=== PATIENT | female | born 1955 | race Caucasian/White ===

== ENCOUNTER 2018-10-31 11:02 | Outpatient (RCR) | payer OTHER, SELFPAY ==
--- NOTE | 2018-10-31 17:09 | PT.OIE ---
Current Diagnoses Pain in left arm (10/31/18) Past Medical History (Last Updated 10/29/18 @ 10:28 by Stefanie Cuellar) Chicken pox (Resolved) History of Green[place]ic measles (Resolved) History of flexible sigmoidoscopy (Resolved 1988) Left inguinal hernia (Resolved 1988) Mumps (Resolved) Pneumonia (Resolved) Rheumatic fever (Resolved) Scarlet fever (Resolved) Urticarial rash (Resolved) Vasovagal syncope (Resolved) Past Surgical History (Last Updated 10/29/18 @ 10:28 by Stefanie Cuellar) Status post colonoscopy (Resolved 2004) Status post colonoscopy (Resolved 2013) Status post dilation and curettage (Resolved 1987) Status post hernia repair (Resolved 1988) Status post tonsillectomy and adenoidectomy (Resolved ~1959) Provider Visit Care Team Role Provider Type Sridevi Joy DO Primary Care Provider Physician Specialty: Family Practice Address: [address] [place] [address] Email: [email or web address] CRISTIAN Barrios Attending Provider Advanced Electrical Systems Design Engineer Specialty: Medical Address: [address] [place] [address] Email: Physical Therapy Initial Evaluation PT-OP-A Visit Information Start: 10/31/18 16:45 Freq: Status: Active Protocol: Document 10/31/18 11:15 DCW (Rec: 10/31/18 17:08 [facility] [id number]) Out-Patient Physical Therapy Visit Information Visit Information Visit Type Initial Evaluation Visit Start Time 11:15 Visit Stop Time 11:55 Total Visit Minutes 40 Visit Number 1 Number of MILLER HEAD Visits 0 Evaluation Information Evaluation Date 10/31/18 PT-OP-B Current Condition Start: 10/31/18 16:45 Freq: Status: Active Protocol: Document 10/31/18 11:15 DCW (Rec: 10/31/18 17:08 DC [id number]) Current Condition History of Current Condition Onset Date 2 months Current Complaints point-specific pain along proximal forearm History of Current Condition Pt is a 63 year old female presenting with a two month history of severe, 9/10 pain on her left forearm. Pain only occurs with pressure, such as leaning forward onto her forearms at her kitchen counter. At all other time, she reports no pain or difficulty. When pain occurs, it lasts for a few minutes to 30 minutes, but fades and she has no lasting effects. Pt reports she doesn't know what caused the injury, but does admit that prior to her pain beginning, she was hanging lights on her roof, and the ladder slipped out from under her. She was able to grab ahold of the gutter, but she doesn't know if the sudden pull led to an injury, or this was caused by something else. Treatment Goals Patient/Caregiver Goals Decreased pain Prior Functional Status Baseline Function- ADL's Independent Baseline Function- Mobility Independent PT-OP-C Subjective Start: 10/31/18 16:45 Freq: Status: Active Protocol: Document 10/31/18 11:15 DCW (Rec: 10/31/18 17:08 DCW [id number]) OP-PT Subjective Patient Comments Patient Comments I feel like I'm crazy, but I just don't know where the pain is coming from. Patient Questionnaires Quick Dash- Upper Extremity Quick Dash UE Score 13.64% Quick Dash UE Impairment 1 to 19% Impaired (Score 1-19) OP-PT Pain Assessment Pain Assessment Grid Paper Pain Assessment Grid Completed Yes Location Left Proximal Forearm Intensity 9 Scale Used Numeric (1 - 10) Description Sharp Frequency Occasional Other Pain Aggravating Factors Resting on forearms PT-OP-F Manual Assessment Start: 10/31/18 16:45 Freq: Status: Active Protocol: Document 10/31/18 11:15 DCW (Rec: 10/31/18 17:08 DCW [id number]) Manual Assessments Soft Tissue Assessment Soft Tissue Mobility Assessment No notable soft tissue injury, tone, or tenderness to palpation Joint Mobility Assessment Joint Mobility Assessment Mobility of humeroulnar joint and radioulnar joint WNL and no pain Other Manual Assessments Other Manual Assessments Only area that caused reaction to palpation was directly on ulna approximately four cm from olecranon PT-OP-K Range of Motion Start: 10/31/18 16:45 Freq: Status: Active Protocol: Document 10/31/18 11:15 DCW (Rec: 10/31/18 17:08 DCW [id number]) Shoulder Goniometric Range of Motion Shoulder Measured in Degrees Left Active Shoulder ROM WFL Yes Elbow/Forearm Range of Motion Elbow/Forearm Measured in Degrees Left Active Elbow/Forearm ROM WFL Yes Wrist Goniometric Range of Motion Wrist Measured in Degrees Left Wrist ROM WFL Yes PT-OP-L Special Tests Start: 10/31/18 16:45 Freq: Status: Active Protocol: Document 10/31/18 11:15 DCW (Rec: 10/31/18 17:08 DCW [id number]) Special Tests Elbow Special Tests Speed's Biceps Test Results Negative Medial Epicondylitis Test Results Negative Varus- 0 Degrees Test Results Negative Valgus- 0 Degrees Test Results Negative Lateral Epicondylitis Flexed Test Results Negative Lateral Epicondylitis Extended Test Results Negative PT-OP-M Strength Start: 10/31/18 16:45 Freq: Status: Active Protocol: Document 10/31/18 11:15 DCW (Rec: 10/31/18 17:08 DCW [id number]) Elbow/Forearm Strength Elbow and Forearm Manual Muscle Testing Left Flexion (C6) 5 Normal Extension (C7) 5 Normal Pronation 5 Normal Supination 5 Normal Wrist Strength Wrist Manual Muscle Testing Left Flexion (C7) 5 Normal Extension (C6) 5 Normal Ulnar Deviation 5 Normal Radial Deviation 5 Normal Hand Operations Manager/Coordinator/Pinch Strength Hand Dominance Hand Dominance Right Hand Strength Right Operations Manager/Coordinator (lbs) 70 Comments 3-trial average (75, 70, 65) Left Operations Manager/Coordinator (lbs) 70 Comments 3-trial average (70, 70, 70) PT-OP-T Assessment and Plan Start: 10/31/18 16:45 Freq: Status: Active Protocol: Document 10/31/18 11:15 DCW (Rec: 10/31/18 17:08 DCW [id number]) Physical Therapy Assessment Rehab Potential Rehabilitation Potential Poor Evaluation Complexity Number of Body Systems Impaired 1-2 Clinical Presentation at Evaluation Stable Impairments Impairments Pain Goals One Impairment Pain up to 9/10 when leaning onto forearms Short Term Goal (STG) Pt to report pain of at most 5 /10 when leaning onto forearms or with palpation STG Duration 12/01/18 Assessment Summary Assessment Pt presents with no symptoms other than point specific pain directly on her proximal ulna . No indication of soft tissue injury, and no deficits in ROM, Strength, activity participation, or ADLs. Currently, pt does not display any indication that she would benefit from skilled therapy. Recommend pt return to PCP for potential proximal ulna radiographs and further DDx. If further testing does uncover functional limitations or soft tissue injury, pt may then be appropriate for skilled therapy at that time, so pt's chart will not be discharged at this time until further testing can be performed. Physical Therapy Plan Frequency and Duration Frequency of Treatment Occasional Duration of Treatment Two months Plan of Care Start Date 10/31/18 Plan of Care End Date 01/01/19 Therapeutic Interventions Therapeutic Interventions Home Exercise Program Manual Therapy Next Visit Focus/Plan Next Note Type Treatment Note Next Visit Plan Further assessment as needed.
--- NOTE | 2018-10-31 17:09 | PT.OPPOC ---
Current Diagnoses Pain in left arm (10/31/18) Provider Visit Care Team Role Provider Type Sridevi Joy DO Primary Care Provider Physician Specialty: Family Practice Address: [address] [place] [address], [id number] Email: [email or web address] CRISTIAN Barrios Attending Provider Advanced Bulb Planter Specialty: Medical Address: [address] [place] [address], [id number] Email: Plan Of Care PT-OP-T Assessment and Plan Start: 10/31/18 16:45 Freq: Status: Active Protocol: Document 10/31/18 11:15 DCW (Rec: 10/31/18 17:08 DCW [id number]) Physical Therapy Assessment Rehab Potential Rehabilitation Potential Poor Evaluation Complexity Number of Body Systems Impaired 1-2 Clinical Presentation at Evaluation Stable Impairments Impairments Pain Goals One Impairment Pain up to 9/10 when leaning onto forearms Short Term Goal (STG) Pt to report pain of at most 5 /10 when leaning onto forearms or with palpation STG Duration 12/01/18 Assessment Summary Assessment Pt presents with no symptoms other than point specific pain directly on her proximal ulna . No indication of soft tissue injury, and no deficits in ROM, Strength, activity participation, or ADLs. Currently, pt does not display any indication that she would benefit from skilled therapy. Recommend pt return to PCP for potential proximal ulna radiographs and further DDx. If further testing does uncover functional limitations or soft tissue injury, pt may then be appropriate for skilled therapy at that time, so pt's chart will not be discharged at this time until further testing can be performed. Physical Therapy Plan Frequency and Duration Frequency of Treatment Occasional Duration of Treatment Two months Plan of Care Start Date 10/31/18 Plan of Care End Date 01/01/19 Therapeutic Interventions Therapeutic Interventions Home Exercise Program Manual Therapy Next Visit Focus/Plan Next Note Type Treatment Note Next Visit Plan Further assessment as needed. Plan of Care Dates Plan of Care Start Date 10/31/18 Plan of Care End Date 01/01/19 Please Sign and Return: I have reviewed this Plan of Care and certify that the skilled therapy services above are required to meet the patient?s needs. Physician Signature Date Printed Name and Credentials Clinical Instructor Signature Printed Name and Credentials
--- NOTE | 2019-01-13 11:21 | PT.OPDS ---
Current Diagnoses Pain in left arm (10/31/18) Provider Visit Care Team Role Provider Type Sridevi Joy DO Primary Care Provider Physician Specialty: Family Practice Address: [address] [place] [address], [id number] Email: [email or web address] CRISTIAN Barrios Attending Provider Advanced Merchandise Buyer Specialty: Medical Address: [address] [place] [address], [id number] Email: Visit Number Visit Number 1 Discharge Summary PT-OP-B Current Condition Start: 10/31/18 16:45 Freq: Status: Active Protocol: Document 10/31/18 11:15 DCW (Rec: 10/31/18 17:08 DCW [id number]) Current Condition History of Current Condition Onset Date 2 months Current Complaints point-specific pain along proximal forearm History of Current Condition Pt is a 63 year old female presenting with a two month history of severe, 9/10 pain on her left forearm. Pain only occurs with pressure, such as leaning forward onto her forearms at her kitchen counter. At all other time, she reports no pain or difficulty. When pain occurs, it lasts for a few minutes to 30 minutes, but fades and she has no lasting effects. Pt reports she doesn't know what caused the injury, but does admit that prior to her pain beginning, she was hanging lights on her roof, and the ladder slipped out from under her. She was able to grab ahold of the gutter, but she doesn't know if the sudden pull led to an injury, or this was caused by something else. Treatment Goals Patient/Caregiver Goals Decreased pain Prior Functional Status Baseline Function- ADL's Independent Baseline Function- Mobility Independent PT-OP-C Subjective Start: 10/31/18 16:45 Freq: Status: Active Protocol: Document 10/31/18 11:15 DCW (Rec: 10/31/18 17:08 DCW [id number]) OP-PT Subjective Patient Comments Patient Comments I feel like I'm crazy, but I just don't know where the pain is coming from. Patient Questionnaires Quick Dash- Upper Extremity Quick Dash UE Score 13.64% Quick Dash UE Impairment 1 to 19% Impaired (Score 1-19) OP-PT Pain Assessment Pain Assessment Grid Paper Pain Assessment Grid Completed Yes Location Left Proximal Forearm Intensity 9 Scale Used Numeric (1 - 10) Description Sharp Frequency Occasional Other Pain Aggravating Factors Resting on forearms PT-OP-F Manual Assessment Start: 10/31/18 16:45 Freq: Status: Active Protocol: Document 10/31/18 11:15 DCW (Rec: 10/31/18 17:08 DCW [id number]) Manual Assessments Soft Tissue Assessment Soft Tissue Mobility Assessment No notable soft tissue injury, tone, or tenderness to palpation Joint Mobility Assessment Joint Mobility Assessment Mobility of humeroulnar joint and radioulnar joint WNL and no pain Other Manual Assessments Other Manual Assessments Only area that caused reaction to palpation was directly on ulna approximately four cm from olecranon PT-OP-K Range of Motion Start: 10/31/18 16:45 Freq: Status: Active Protocol: Document 10/31/18 11:15 DCW (Rec: 10/31/18 17:08 DCW [id number]) Shoulder Goniometric Range of Motion Shoulder Measured in Degrees Left Active Shoulder ROM WFL Yes Elbow/Forearm Range of Motion Elbow/Forearm Measured in Degrees Left Active Elbow/Forearm ROM WFL Yes Wrist Goniometric Range of Motion Wrist Measured in Degrees Left Wrist ROM WFL Yes PT-OP-L Special Tests Start: 10/31/18 16:45 Freq: Status: Active Protocol: Document 10/31/18 11:15 DCW (Rec: 10/31/18 17:08 DCW [id number]) Special Tests Elbow Special Tests Speed's Biceps Test Results Negative Medial Epicondylitis Test Results Negative Varus- 0 Degrees Test Results Negative Valgus- 0 Degrees Test Results Negative Lateral Epicondylitis Flexed Test Results Negative Lateral Epicondylitis Extended Test Results Negative PT-OP-M Strength Start: 10/31/18 16:45 Freq: Status: Active Protocol: Document 10/31/18 11:15 DCW (Rec: 10/31/18 17:08 DCW [id number]) Elbow/Forearm Strength Elbow and Forearm Manual Muscle Testing Left Flexion (C6) 5 Normal Extension (C7) 5 Normal Pronation 5 Normal Supination 5 Normal Wrist Strength Wrist Manual Muscle Testing Left Flexion (C7) 5 Normal Extension (C6) 5 Normal Ulnar Deviation 5 Normal Radial Deviation 5 Normal Hand Uniform Patrol Police Officer/Pinch Strength Hand Dominance Hand Dominance Right Hand Strength Right Uniform Patrol Police Officer (lbs) 70 Comments 3-trial average (75, 70, 65) Left Uniform Patrol Police Officer (lbs) 70 Comments 3-trial average (70, 70, 70) PT-OP-T Assessment and Plan Start: 10/31/18 16:45 Freq: Status: Active Protocol: Document 01/13/19 11:18 DCW (Rec: 01/13/19 11:21 DCW [id number]) Physical Therapy Assessment Goals One Impairment Pain up to 9/10 when leaning onto forearms Short Term Goal (STG) Pt to report pain of at most 5 /10 when leaning onto forearms or with palpation STG Duration 12/01/18 Assessment Summary Assessment At the time of pt's evaluation , there was no indication of soft-tissue injury or signs that pt would benefit from skilled therapeutic intervention. Pt was informed that her chart would be left open pending results of forearm radiographs or symptoms changes. Pt has now not been seen in more than two months, and has no further visits scheduled. Pt will be discharged at this time, and will require a new referral in order to return to skilled therapy. Physical Therapy Plan Discharge Physical Therapy Discharge Reasons No Longer Attending PT Next Visit Focus/Plan Next Note Type Discharge Summary
== END 2019-01-19 14:59 ==
LOC: PHYS 11:02
PROVIDERS: PCP Family Medicine; Visit Provider Registered Nurse
DX: M79.602 Pain in left arm (principal)
CPT/HCPCS: 97161

== ENCOUNTER → 2018-11-04 14:26 | Outpatient (CLI) | payer OTHER, SELFPAY ==
--- NOTE | 2018-11-04 14:28 | DI.RAD.S_ITS ---
PROCEDURE: XR FOREARM RT 2V INDICATIONS: left forearm pain TECHNIQUE: 2 views of the forearm were acquired. COMPARISON: None. FINDINGS: Bones: No fractures or dislocations. No suspicious bony lesions. Soft tissues: No suspicious soft tissue calcifications or masses. IMPRESSION: No visualized acute fracture or dislocation. However, if clinical concern and/or pain persist, short interval imaging followup in 7-10 days is recommended, as occult injury cannot be definitively excluded. Dictated by: Elzbieta Mack M.D. on 11/04/2018 at 17:34 Approved by: Elzbieta Mack M.D. on 11/04/2018 at 17:34
== END ==
PROVIDERS: PCP Family Medicine; Visit Provider Registered Nurse
DX: M79.632 Pain in left forearm (principal)
CPT/HCPCS: 73090

== ENCOUNTER → 2018-12-16 07:45 | Outpatient (CLI) | payer OTHER, SELFPAY ==
[2018-12-16 08:23] LABS: Add Manual Diff / Slide Review NO; Basophils Absolute Auto 0 /uL (0-100); Basophils Percent Auto 0.8 % (0-2); Eosinophils Absolute Auto 100 /uL (0-450); Eosinophils Percent Auto 1.9 % (2-4); Hematocrit 46.2 % (36-46); Hemoglobin 15.5 g/dL (12.0-16.0); Lymphocytes Absolute Auto 1900 /uL (1100-4500); Lymphocytes Percent Auto 38.7 % (25-40); Mean Corpuscular HGB Conc 33.5 % (30-36); Mean Corpuscular Hemoglobin 30.7 PG (26-34); Mean Corpuscular Volume 91.7 fL (80-100); Monocytes Absolute Auto 300 /uL (0-900); Monocytes Percent Auto 6.9 % (3-14); Neutrophils Absolute Auto 2500 /uL (1500-7000); Neutrophils Percent Auto 51.7 % (50-75); Platelet Count 238 X10^3/uL (150-400); Red Blood Cell Count 5.04 X10^6/uL (4.0-5.2); Red Cell Distribution Width 13.2 % (11.6-14.8); White Blood Cell Count 4.8 X10^3/uL (4.5-11.0)
[2018-12-16 08:44] LABS: Alanine Aminotransferase 35 IU/L (9-52); Albumin 4.5 g/dL (3.5-5.0); Albumin Globulin Ratio 1.6 (1.0-2.8); Alkaline Phosphatase 70 U/L (38-126); Aspartate Aminotransferase 26 IU/L (14-36); Bilirubin Total 0.5 mg/dL (0.2-1.3); Blood Urea Nitrogen 20 mg/dL (7-17); Calcium 9.6 mg/dL (8.4-10.2); Carbon Dioxide 28 mmol/L (22-32); Chloride 102 mmol/L (98-107); Cholesterol 174 mg/dL (140-199); Estimated Glomerular Filt Rate > 60.0 mL/min (>60); Globulin 2.8 g/dL (1.7-4.1); Glucose 119 mg/dL (80-110); HDL Cholesterol 81 mg/dL (40-60); HEMOLYSIS < 15 (0-50); LDL Cholesterol Calculated 81 mg/dL (<100); Potassium 4.2 mmol/L (3.4-5.1); Sodium 139 mmol/L (137-145); Total Protein 7.3 g/dL (6.3-8.2); Triglycerides 60 mg/dL (35-150)
[2018-12-16 08:46] LABS: Hemoglobin A1C% w Est Avg Glu 5.7 % (4.0-6.0)
[2018-12-16 09:10] LABS: TSH w/ Reflex to FT4 3.86 uIU/mL (0.47-4.68)
== END ==
PROVIDERS: PCP Family Medicine; Visit Provider Family Medicine
DX: R73.03 Prediabetes (principal); Z00.00 Encounter for general adult medical examination without abnormal findings
CPT/HCPCS: 36415; 80053; 80061; 83036; 84443; 85025

== ENCOUNTER → 2019-06-12 13:41 | Outpatient (CLI) | payer OTHER, SELFPAY ==
--- NOTE | 2019-06-12 | DI.MG.S_ITS ---
BILATERAL DIGITAL SCREENING MAMMOGRAM 3D/2D WITH CAD: 06/12/2019 CLINICAL: Routine screening. Comparison is made to exams dated: 09/12/2016 mammogram, 08/30/2015 mammogram, and 08/26/2014 mammogram - [facility]. The tissue of both breasts is heterogeneously dense. This may lower the sensitivity of mammography. Current study was also evaluated with a Computer Aided Detection (CAD) system. No significant masses, calcifications, or other findings are seen in either breast. There has been no significant interval change. IMPRESSION: NEGATIVE There is no mammographic evidence of malignancy. A 1 year screening mammogram is recommended. This exam was interpreted at Station ID: [id number]. NOTE: For mammograms, a report in lay terms will be sent to the patient. Approximately 15% of breast malignancies will not be visualized mammographically. In the management of a palpable breast mass, a negative mammogram must not discourage biopsy of a clinically suspicious lesion. Electronically Signed By: Daisy pro/pilo:06/12/2019 16:09:33 letter sent: Normal Exam ACR BI-RADS Category 1: Negative 3341F
== END ==
PROVIDERS: PCP Family Medicine; Visit Provider Family Medicine
DX: Z12.31 Encounter for screening mammogram for malignant neoplasm of breast (principal)
CPT/HCPCS: 77063; 77067

== ENCOUNTER → 2019-07-02 08:47 | Outpatient (CLI) | payer OTHER, SELFPAY ==
--- NOTE | 2019-07-02 08:48 | DI.US.S_ITS ---
PROCEDURE: US PELVIC COMPLETE INDICATIONS: PELVIC PAIN TECHNIQUE: Real-time scanning was performed of the pelvic organs, with image documentation. Additional endovaginal scanning was necessary due to incomplete visualization of the adnexal and endometrial structures by transabdominal scanning. COMPARISON: None. FINDINGS: Transabdominal scanning: No pathologic free abdominal or pelvic fluid. Endovaginal scanning: Uterus: Uterus is retroverted and normal in size at 7.3 x 3.9 x 4.4 cm. No mass seen. The endometrium is up the upper limits of normal in a postmenopausal patient measuring 5 mm in combined thickness. There may be trace fluid in the endometrial canal. Ovaries: Not identified on transabdominal or transvaginal scanning. IMPRESSION: 1. Endometrial thickness is at the upper limits of normal in a postmenopausal patient measuring 5 mm. If postmenopausal bleeding is reported endometrial biopsy should be considered. 2. No free fluid in the pelvis. Ovaries are not identified. Dictated by: Seferino Mcgee M.D. on 07/02/2019 at 9:44 Approved by: Seferino Mcgee M.D. on 07/02/2019 at 9:52
== END ==
PROVIDERS: PCP Family Medicine; Visit Provider Hospitalist
DX: R10.2 Pelvic and perineal pain (principal)
CPT/HCPCS: 76830; 76856

== ENCOUNTER → 2020-03-25 11:36 | Outpatient (CLI) | payer MEDICARE, OTHER, SELFPAY ==
--- NOTE | 2020-03-25 | DI.MRI.S_ITS ---
PROCEDURE: MR KNEE RT WO CON INDICATIONS: Sprain of medial collateral ligament of right knee TECHNIQUE: Noncontrast sagittal PD fast spin echo and T2 fast spin echo with fat saturation, sagittal 3-D FLASH with fat saturation; coronal T1 spin echo and PD fast spin echo with fat saturation, and axial PD fast spin echo with fat saturation through the knee. COMPARISON: [facility], MR, KNEE WITHOUT CONTRAST, 04/11/2017, 7:02. FINDINGS: Image quality: Excellent. Menisci: There is peripheral displacement of medial meniscus bowing medial collateral ligament. Oblique tear involving posterior horn of medial meniscus is seen extending to inferior articulating surface. There is no evidence of focal lateral meniscal tear. The meniscal root ligaments appear intact. Cruciate ligaments: Suggestion of myxoid degenerative changes involving proximal anterior cruciate ligament near its femoral insertion. No full-thickness ACL rupture. Posterior cruciate ligament is intact. Medial structures: There is moderate grade MCL sprain/intrasubstance partial-thickness tear. No full-thickness MCL rupture.. The posterior oblique ligament, semimembranosus tendon insertions, oblique popliteal ligament, and meniscocapsular junction appear intact. Visualized portions of the pes anserinus tendons appear normal. No abnormal bursal fluid. Lateral structures: The lateral collateral ligament, long and short heads of the biceps femoris tendon appear intact. The popliteus tendon appears normal; the popliteofibular ligament appears intact. The posterosuperior and anteroinferior popliteomeniscal fascicles appear intact. The arcuate and fabellofibular ligaments appear intact, on either side of the lateral inferior geniculate artery. Iliotibial band appears normal. Anterior structures: Mild soft tissue edema and swelling along anterior aspect of patella and patella tendon is seen. The quadriceps and patellar tendons appear intact. Patellar alignment is normal. No femoral trochlear dysplasia or ventral trochlear prominence. No edema in the infrapatellar fat pad. 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 Significant chondromalacia involving apex and medial facet of patella cartilage is also seen. Joint space: There is moderate amount of knee joint fluid. No Owen's cyst. Normal appearing synovial plicae are incidentally noted. IMPRESSION: 1. Oblique tear involving posterior horn of medial meniscus extending to inferior articulating surface. Peripheral displacement of medial meniscus bowing medial collateral ligament. No evidence of focal lateral meniscal tear. 2. Moderate grade MCL sprain. No full-thickness MCL rupture. 3. Suggestion of myxoid degenerative changes and low-grade intrasubstance partial-thickness tear involving anterior cruciate ligament near its femoral insertion. No full-thickness ACL rupture. PCL is intact. 4. Mild to moderate tricompartmental osteoarthritis most prominent in medial femoral tibial compartment. 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 5. Mild anterior knee soft tissue swelling and edema. Quadriceps tendon and patellar tendon are intact. Dictated by: David Amador M.D. on 03/25/2020 at 13:08 Approved by: David Amador M.D. on 03/25/2020 at 13:13
== END ==
PROVIDERS: PCP Family Medicine; Referring Provider Orthopaedic Surgery; Visit Provider Orthopaedic Surgery
DX: S83.411D Sprain of medial collateral ligament of right knee, subsequent encounter (principal); S83.241A Other tear of medial meniscus, current injury, right knee, initial encounter; M17.11 Unilateral primary osteoarthritis, right knee; M22.41 Chondromalacia patellae, right knee
CPT/HCPCS: 73721

== ENCOUNTER → 2020-08-03 12:28 | Outpatient (CLI) | payer MEDICARE, OTHER, SELFPAY ==
--- NOTE | 2020-08-03 12:54 | DI.MG.S_ITS ---
Patient Name: JHONATAN STONE date: 1955 Sex: F Attending Physician: Rufino Indications: Date: 08/03/2020 12:44 At the request of: ABRAHAM SHEARER Procedure: MM screening mammo BI BILATERAL DIGITAL SCREENING MAMMOGRAM 3D/2D WITH CAD: 08/03/2020 CLINICAL: Routine screening. Comparison is made to exams dated: 06/12/2019 mammogram, 09/12/2016 mammogram, and 08/30/2015 mammogram - [facility]. The tissue of both breasts is heterogeneously dense. This may lower the sensitivity of mammography. Current study was also evaluated with a Computer Aided Detection (CAD) system. No significant masses, calcifications, or other findings are seen in either breast. There has been no significant interval change. IMPRESSION: NEGATIVE There is no mammographic evidence of malignancy. A 1 year screening mammogram is recommended. This exam was interpreted at Station ID: [id number]. NOTE: For mammograms, a report in lay terms will be sent to the patient. Approximately 15% of breast malignancies will not be visualized mammographically. In the management of a palpable breast mass, a negative mammogram must not discourage biopsy of a clinically suspicious lesion. Electronically Signed By: Santosh Greco M.D., jr/pilo:08/03/2020 14:15:07 letter sent: Normal Exam ACR BI-RADS Category 1: Negative 3341F
== END ==
PROVIDERS: PCP Family Medicine; Referring Provider Family Medicine; Visit Provider Family Medicine
DX: Z12.31 Encounter for screening mammogram for malignant neoplasm of breast (principal)
CPT/HCPCS: 77063; 77067

== ENCOUNTER → 2020-10-10 16:23 | Outpatient (CLI) | payer MEDICARE, OTHER, SELFPAY ==
--- NOTE | 2020-10-10 16:57 | DI.RAD.S_ITS ---
PROCEDURE: XR ACUTE ABDOMEN SERIES INDICATIONS: abdo. pain TECHNIQUE: One view chest and two views of the abdomen were acquired. COMPARISON: [facility], , L-SPINE 2-3 VIEWS, 11/10/2013, 10:12. FINDINGS: Surgical changes and devices: None. Chest: Lungs are clear. The cardiac contours are within normal limits. The aorta demonstrates calcification and tortuosity. No pleural effusions. No pneumoperitoneum. Abdomen: Bowel gas pattern is normal. No suspicious calcifications. Visualized solid organ contours appear normal. Bones: No suspicious bony lesions. S-shaped scoliotic curvature is seen. Age-appropriate bony degenerative changes are seen. IMPRESSION: A nonobstructive bowel gas pattern is seen. As clinically appropriate, please consider a repeat plain film study or a dedicated CT of the abdomen and pelvis, if the patient's symptoms persist or worsen. Dictated by: Ata Pinto M.D. on 10/10/2020 at 16:53 Approved by: Ata Pinto M.D. on 10/10/2020 at 16:55
[2020-10-10 17:28] LABS: Add Manual Diff / Slide Review NO; Basophils Absolute Auto 0 /uL (0-100); Basophils Percent Auto 0.4 % (0-2); Eosinophils Absolute Auto 100 /uL (0-450); Eosinophils Percent Auto 1.3 % (2-4); Hematocrit 42.1 % (36-46); Hemoglobin 14.1 g/dL (12.0-16.0); Lymphocytes Absolute Auto 1900 /uL (1100-4500); Lymphocytes Percent Auto 17.6 % (25-40); Mean Corpuscular HGB Conc 33.5 % (30-36); Mean Corpuscular Hemoglobin 30.8 PG (26-34); Mean Corpuscular Volume 91.8 fL (80-100); Monocytes Absolute Auto 900 /uL (0-900); Monocytes Percent Auto 8.1 % (3-14); Neutrophils Absolute Auto 7600 /uL (1500-7000); Neutrophils Percent Auto 72.6 % (50-75); Platelet Count 246 X10^3/uL (150-400); Red Blood Cell Count 4.58 X10^6/uL (4.0-5.2); Red Cell Distribution Width 12.9 % (11.6-14.8); White Blood Cell Count 10.5 X10^3/uL (4.5-11.0)
[2020-10-10 17:41] LABS: Alanine Aminotransferase 18 IU/L (<35); Albumin 4.5 g/dL (3.5-5.0); Albumin Globulin Ratio 1.5 (1.0-2.8); Alkaline Phosphatase 69 U/L (38-126); Aspartate Aminotransferase 25 IU/L (14-36); Bilirubin Total 0.6 mg/dL (0.2-1.3); Blood Urea Nitrogen 20 mg/dL (7-17); Carbon Dioxide 29 mmol/L (22-32); Chloride 101 mmol/L (98-107); Estimated Glomerular Filt Rate > 60.0 mL/min (>60); Globulin 3.1 g/dL (1.7-4.1); Glucose 105 mg/dL (80-110); HEMOLYSIS 16 (0-50); Lipase 98 U/L (23-300); Sodium 135 mmol/L (137-145); Total Protein 7.6 g/dL (6.3-8.2)
== END ==
PROVIDERS: PCP Family Medicine; Referring Provider Registered Nurse; Visit Provider Registered Nurse
DX: R10.9 Unspecified abdominal pain (principal)
CPT/HCPCS: 36415; 74022; 80053; 83690; 85025

== ENCOUNTER → 2021-06-19 10:49 | Outpatient (CLI) | payer MEDICARE, OTHER, SELFPAY ==
[2021-06-19 11:43] LABS: Alanine Aminotransferase 38 IU/L (<35); Albumin 4.2 g/dL (3.5-5.0); Albumin Globulin Ratio 1.6 (1.0-2.8); Alkaline Phosphatase 69 U/L (38-126); Aspartate Aminotransferase 35 IU/L (14-36); BUN Creatinine Ratio 26.9 (6-22); Bilirubin Total 0.6 mg/dL (0.2-1.3); Blood Urea Nitrogen 21 mg/dL (7-17); Carbon Dioxide 29 mmol/L (22-32); Chloride 103 mmol/L (98-107); Cholesterol 207 mg/dL (140-199); Estimated Glomerular Filt Rate > 60.0 mL/min (>60); Globulin 2.6 g/dL (1.7-4.1); Glucose 113 mg/dL (80-110); HDL Cholesterol 99 mg/dL (40-60); HEMOLYSIS < 15 (0-50); LDL Cholesterol Calculated 96 mg/dL (<100); Potassium 4.8 mmol/L (3.4-5.1); Sodium 137 mmol/L (137-145); Total Protein 6.8 g/dL (6.3-8.2); Triglycerides 61 mg/dL (35-150)
== END ==
PROVIDERS: PCP Family Medicine; Referring Provider Family Medicine; Visit Provider Family Medicine
DX: E66.3 Overweight (principal); I10 Essential (primary) hypertension; R73.03 Prediabetes
CPT/HCPCS: 36415; 80053; 80061

== ENCOUNTER → 2021-06-26 08:07 | Outpatient (CLI) | payer MEDICARE, OTHER, SELFPAY ==
--- NOTE | 2021-06-26 08:09 | DI.ECHO.S_ITS ---
[facility] +---------+ : : [address] : [address] : : : : [id number] : : : : Phone: [phone]+ Echocardiogram Report + + :Name: JHONATAN STONE Study Date: 06/26/2021 Height: 67 in : :[facility] ReadingLocation: Weight: 177 lb : : Gender: Female BSA: 1.9 m2 : :: 1955 Age: 65 yrs BP: 156/97 mmHg: :Reason For Study: ATHEROSCLEROSIS OF AORTA : :Ordering Physician: JANKI, : :ABRAHAM Performed By: Sam Duarte : :Referring: ABRAHAM SHEARER : + + Interpretation Summary Normal both left and right ventricle size and function. The ejection fraction is 55-60%. No valvular abnormality. Procedure: A two-dimensional transthoracic echocardiogram with color flow and Doppler was performed. The study quality was technically adequate. There is no prior echocardiogram noted for this patient. The patient was in sinus rhythm with heart rates between 53-67 bpm during the exam. Left Ventricle: The left ventricle is normal in size and wall thickness. The ejection fraction is estimated to be 55-60%. There are no focal wall motion abnormalities. Diastolic parameters suggest probable normal left ventricular diastolic function and normal filling pressures. Right Ventricle: The right ventricle is normal in size and function. Atria: Both atria are normal in size. There is no Doppler evidence for an interatrial shunt. Mitral Valve: The mitral valve is normal in structure and function. There is trace mitral regurgitation. Aortic Valve: The aortic valve is normal in structure and function. No aortic regurgitation is present. Tricuspid Valve: The tricuspid valve is normal in structure and function. There is mild tricuspid regurgitation. The right ventricular systolic pressure is estimated to be at least 26 mmHg based on an estimated right atrial pressure of 3 mm Hg. Pulmonic Valve: The pulmonic valve is normal in structure and function. There is a trace or physiologic amount of pulmonic regurgitation. Great Vessels: The aortic root is normal size. The dimensions of the ascending aorta are normal. The IVC is of normal diameter and collapses greater than 50% with a sniff. This suggests a low right atrial pressure of 3 mm Hg. Pericardium/ Pleura There is no pericardial effusion. There is no pleural effusion. MMode/2D Measurements & Calculations LVIDd: 4.9 cm LVOT diam: 1.9 cm LVIDs: 3.4 cm Ao root diam: 3.2 cm FS: 30.6 % asc Aorta Diam: 3.5 cm IVSd: 0.90 cm LVPWd: 0.70 cm LV leo. diameter/BSA (cm/m^2): 2.6 LV sys. diameter/BSA (cm/m^2): 1.8 LA dimension: 3.3 cm RA long axis: 4.6 cm LA A2 area: 15.5 cm2 LA A4 area: 18.0 cm2 LA length (vol): 5.2 cm LA vol: 45.3 ml LA vol index: 23.6 ml/m2 TAPSE_phl: 2.2 cm RVIDd/LVIDd_phl: 0.61 Doppler Measurements & Calculations Ao V2 max: 148.0 cm/sec LVOT Max Heraclio: 129.0 cm/sec Ao V2 mean: 105.0 cm/sec LV V1 max P.7 mmHg Ao max P.0 mmHg LV V1 VTI: 27.6 cm Ao mean P.0 mmHg BRANDON(I,D): 2.5 cm2 Ao V2 VTI: 31.4 cm BRANDON(V,D): 2.5 cm2 sev ratio: 0.88 BRANDON indexed to BSA (cm^2/m^2): 1.3 MV E max heraclio: 78.4 cm/sec TR max heraclio: 237.0 cm/sec MV A max heraclio: 90.4 cm/sec TR max P.5 mmHg MV E/A: 0.87 PA V2 max: 100.0 cm/sec Med Peak E' Heraclio: 7.5 cm/sec PA V2 mean: 70.2 cm/sec E/E' med: 10.4 PA mean P.0 mmHg Lat Peak E' Heraclio: 10.7 cm/sec PA pr(Accel): 38.5 mmHg E/E' lat: 7.3 E/e' average: 8.9 MV dec time: 0.21 sec SV(LVOT): 78.3 ml AV VR_phl: 0.87 BRANDON(VTI)/BSA_phl: 1.3 MV P1/2t-pr_phl: 62.0 msec Electronically signed by: Yusuf castillo Reading Physician:06/27/2021 11:01 AM
== END ==
PROVIDERS: PCP Family Medicine; Referring Provider Family Medicine; Visit Provider Family Medicine
DX: I07.1 Rheumatic tricuspid insufficiency (principal); I70.0 Atherosclerosis of aorta
CPT/HCPCS: 93306

== ENCOUNTER → 2021-12-02 14:48 | Outpatient (CLI) | payer MEDICARE, OTHER, SELFPAY ==
[2021-12-02 15:56] LABS: COVID19 -Nasal RAPID Negative (Negative)
== END ==
PROVIDERS: PCP Family Medicine; Visit Provider Nurse Practitioner Family
DX: R05.9 Cough, unspecified (principal); Z20.822 Contact with and (suspected) exposure to COVID-19
CPT/HCPCS: 87635

== ENCOUNTER → 2021-12-02 15:13 | Outpatient (CLI) | payer MEDICARE, OTHER, SELFPAY ==
--- NOTE | 2021-12-02 15:19 | DI.RAD.S_ITS ---
PROCEDURE: XR CHEST 2V INDICATIONS: cough TECHNIQUE: 2 views of the chest were acquired. COMPARISON: [facility], CHEST 2 VIEW, 04/12/2008, 12:43. [facility], CHEST 1 VIEW, 06/09/2015, 3:24. FINDINGS: Surgical changes and devices: None. Lungs and pleura: Lungs are clear. No pleural effusions or pneumothorax. Mediastinum: Mediastinal contours are normal. Heart size is normal. Bones and chest wall: No suspicious bony abnormalities. Soft tissues appear unremarkable. IMPRESSION: No evidence of an acute cardiopulmonary abnormality. Dictated by: Domenico Cordon D.O. on 12/02/2021 at 15:19 Approved by: Domenico Cordon D.O. on 12/02/2021 at 15:20
== END ==
PROVIDERS: PCP Family Medicine; Referring Provider Nurse Practitioner Family; Visit Provider Nurse Practitioner Family
DX: R05.9 Cough, unspecified (principal); Z20.822 Contact with and (suspected) exposure to COVID-19
CPT/HCPCS: 71046; 87635

== ENCOUNTER → 2022-02-22 11:38 | Outpatient (CLI) | payer MEDICARE, OTHER, SELFPAY ==
--- NOTE | 2022-02-22 11:44 | DI.MG.S_ITS ---
BILATERAL DIGITAL SCREENING MAMMOGRAM 3D/2D WITH CAD: 02/22/2022 CLINICAL: Routine screening. Comparison is made to exams dated: 08/03/2020 mammogram, 06/12/2019 mammogram, and 09/12/2016 mammogram - [facility]. The tissue of both breasts is heterogeneously dense. This may lower the sensitivity of mammography. Current study was also evaluated with a Computer Aided Detection (CAD) system. No significant masses, calcifications, or other findings are seen in either breast. There has been no significant interval change. IMPRESSION: NEGATIVE There is no mammographic evidence of malignancy. A 1 year screening mammogram is recommended. This exam was interpreted at Station ID: [id number]. NOTE: For mammograms, a report in lay terms will be sent to the patient. Approximately 15% of breast malignancies will not be visualized mammographically. In the management of a palpable breast mass, a negative mammogram must not discourage biopsy of a clinically suspicious lesion. Electronically Signed By: Juanjo gomez/pilo:02/22/2022 13:57:05 letter sent: Normal Exam ACR BI-RADS Category 1: Negative 3341F
== END ==
PROVIDERS: PCP Family Medicine; Referring Provider Family Medicine; Visit Provider Family Medicine
DX: Z12.31 Encounter for screening mammogram for malignant neoplasm of breast (principal)
CPT/HCPCS: 77063; 77067

== ENCOUNTER → 2022-06-26 15:39 | Outpatient (CLI) | payer MEDICARE, OTHER, SELFPAY ==
--- NOTE | 2022-06-26 15:41 | DI.RAD.S_ITS ---
PROCEDURE: XR HIP W PEL IF DONE LT 2V INDICATIONS: left hip to groin pain/bruising s/p fall, h/o sciatica/LBP TECHNIQUE: AP pelvis with lateral view(s) of the left hip(s). COMPARISON: None. FINDINGS: Bones: No fractures or dislocations. Pelvic ring appears intact. No suspicious bony lesions. Minimal to mild arthritic narrowing is present within the hips bilaterally. No erosions. Soft tissues: The visualized bowel gas pattern is normal. No suspicious soft tissue calcifications. 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 Dictated by: Elzbieta Mack M.D. on 06/26/2022 at 17:46 Approved by: Elzbieta Mack M.D. on 06/26/2022 at 17:46
--- NOTE | 2022-06-26 15:41 | DI.RAD.S_ITS ---
PROCEDURE: XR LUMBAR SPINE 2-3V INDICATIONS: left hip to groin pain/bruising s/p fall, h/o sciatica/LBP TECHNIQUE: 3 views of the lumbar spine were acquired. COMPARISON: Merged With [facility], , L-SPINE 2-3 VIEWS, 11/10/2013, 10:12. FINDINGS: Bones: 5 [id number] vertebrae are present. There is normal bony alignment. No vertebral body compression fractures. No suspicious bony lesions. Multilevel moderate disc space narrowing most severe at L5-S1. Mild L5-S1 foraminal narrowing. Soft tissues: Overlying bowel gas pattern is normal. No suspicious soft tissue calcifications. IMPRESSION: Degenerative changes most notable at L5-S1. Dictated by: Elzbieta Mack M.D. on 06/26/2022 at 17:44 Approved by: Elzbieta Mack M.D. on 06/26/2022 at 17:45
== END ==
PROVIDERS: PCP Pediatrics; Referring Provider Pediatrics; Visit Provider Pediatrics
DX: S70.02XA Contusion of left hip, initial encounter (principal); M47.817 Spondylosis without myelopathy or radiculopathy, lumbosacral region; M25.552 Pain in left hip; R10.32 Left lower quadrant pain; W19.XXXA Unspecified fall, initial encounter; Z86.69 Personal history of other diseases of the nervous system and sense organs
CPT/HCPCS: 72100; 73502

== ENCOUNTER → 2022-07-16 11:06 | Outpatient (CLI) | payer MEDICARE, OTHER, SELFPAY | PROVIDERS: PCP Pediatrics; Referring Provider Pediatrics; Visit Provider Pediatrics | DX: M85.89 Other specified disorders of bone density and structure, multiple sites (principal); Z13.820 Encounter for screening for osteoporosis; Z78.0 Asymptomatic menopausal state | CPT/HCPCS: 77080 ==

== ENCOUNTER → 2023-02-25 10:28 | Outpatient (CLI) | payer MEDICARE, OTHER, SELFPAY ==
--- NOTE | 2023-02-25 | DI.MG.S_ITS ---
BILATERAL DIGITAL SCREENING MAMMOGRAM 3D/2D WITH CAD: 02/25/2023 CLINICAL: Routine screening. Comparison is made to exams dated: 02/22/2022 mammogram, 08/03/2020 mammogram, and 06/12/2019 mammogram - [facility]. Both breasts are heterogeneously dense, which may obscure small masses (category c / 51-75% glandular tissue). Current study was also evaluated with a Computer Aided Detection (CAD) system. No significant masses, calcifications, or other findings are seen in either breast. There has been no significant interval change. IMPRESSION: NEGATIVE There is no mammographic evidence of malignancy. A 1 year screening mammogram is recommended. Based on the Tyrer Cuzick model (a risk assessment model) the patient's lifetime risk is 8.6% and her 10 year risk is 4.8%. According to the ACR, ACS, and NCCN guidelines, an annual breast MRI exam along with mammogram is recommended if the patient's lifetime risk is 20% or greater. This exam was interpreted at Station ID: [id number]. NOTE: For mammograms, a report in lay terms will be sent to the patient. Approximately 15% of breast malignancies will not be visualized mammographically. In the management of a palpable breast mass, a negative mammogram must not discourage biopsy of a clinically suspicious lesion. Electronically Signed By: Dorie thao/pilo:02/25/2023 11:31:24 letter sent: Normal Exam ACR BI-RADS Category 1: Negative 3341F
== END ==
PROVIDERS: PCP Family Medicine; Referring Provider Family Medicine; Visit Provider Family Medicine
DX: Z12.31 Encounter for screening mammogram for malignant neoplasm of breast (principal)
CPT/HCPCS: 77063; 77067

== ENCOUNTER → 2023-09-03 12:18 | Outpatient (CLI) | payer MEDICARE, OTHER, SELFPAY ==
[2023-09-03 14:41] LABS: BUN Creatinine Ratio 25.4 (6-22); Blood Urea Nitrogen 17 mg/dL (7-17); Calcium 10.1 mg/dL (8.4-10.2); Carbon Dioxide 25 mmol/L (22-32); Chloride 101 mmol/L (98-107); Estimated Glomerular Filt Rate > 60 mL/min (>60); Glucose 103 mg/dL (80-110); HEMOLYSIS < 15 (0-50); Potassium 4.5 mmol/L (3.4-5.1); Sodium 134 mmol/L (137-145)
[2023-09-03 14:43] LABS: Lipase 159 U/L (23-300)
[2023-09-03 14:59] LABS: Free T3, Triiodothyronine Free 3.43 pg/mL (2.77-5.27); Free T4, Direct Thyroxine 1.13 ng/dL (0.78-2.19)
== END ==
PROVIDERS: PCP Family Medicine; Referring Provider Family Medicine; Visit Provider Family Medicine
DX: R53.83 Other fatigue (principal); R63.5 Abnormal weight gain; R10.32 Left lower quadrant pain
CPT/HCPCS: 36415; 80048; 83690; 84439; 84443; 84481

== ENCOUNTER → 2023-09-09 12:55 | Outpatient (CLI) | payer MEDICARE, OTHER, SELFPAY ==
--- NOTE | 2023-09-09 12:57 | DI.CT.S_ITS ---
PROCEDURE: CT ABDOMEN PELVIS W CON INDICATIONS: 6wk LLQ pain, waxing and waning, small caliber stool TECHNIQUE: After the administration of oral and intravenous contrast, axial sections were acquired from the lung bases to the pubic symphysis. Coronal and sagittal reformats were performed. For radiation dose reduction, the following was used: automated exposure control, adjustment of mA and/or kV according to patient size. COMPARISON:None. FINDINGS: Image quality: Excellent. Lung bases: Lung bases are clear. Heart size is normal. Solid organs: Liver: The liver has no mass or intrahepatic biliary ductal dilatation. The portal vein and hepatic veins are patent. 1.4 cm hypodensity in the right hepatic lobe with nodular peripheral enhancement likely a hemangioma. Biliary: The gallbladder has no gallstones, pericholecystic fluid, gallbladder wall thickening, or surrounding inflammatory change. Pancreas: The pancreas has no mass or ductal dilatation. There is no surrounding inflammation. Spleen: Normal size. There are no masses. Adrenals: No hypertrophy or nodules. Kidneys: No obstructive calculus or hydronephrosis. No solid mass. No cystic mass. Peritoneum and bowel: The distal esophagus and stomach are normal. The small bowel has a normal caliber and appearance. The terminal ileum is normal. The large bowel has diverticulosis without evidence of acute diverticulitis. The appendix is not definitively visualized and therefore acute appendicitis cannot be excluded; however there are no secondary findings to suggest acute appendicitis. No free fluid or air. Nodes and vessels: No retroperitoneal or mesenteric adenopathy by size criteria. Aorta and inferior vena cava are normal in size. Miscellaneous: 1.5 cm right femoral hernia containing fluid. PELVIS: Genitourinary: The bladder has no wall thickening or mass. No bladder calcifications. Bones: No suspicious bony lesions. No vertebral body compression fractures. Leftward curvature of the thoracolumbar spine. IMPRESSION: 1. No acute abdominal or pelvic abnormality. 2. Diverticulosis without evidence of acute diverticulitis. Dictated by: Trey Lazar M.D. on 09/09/2023 at 15:19 Approved by: Trey Lazar M.D. on 09/09/2023 at 15:27
== END ==
PROVIDERS: PCP Family Medicine; Referring Provider Family Medicine; Visit Provider Family Medicine
DX: R53.83 Other fatigue (principal); R63.5 Abnormal weight gain; R10.32 Left lower quadrant pain; R53.82 Chronic fatigue, unspecified; K57.90 Diverticulosis of intestine, part unspecified, without perforation or abscess without bleeding
CPT/HCPCS: 74177; Q9967

== ENCOUNTER 2023-10-08 12:45 | Day surgery (SDC) | payer MEDICARE, OTHER, SELFPAY ==
--- NOTE | 2023-10-08 | PATH_ITS ---
[facility] Accession Number: [id number] No. of containers..02 Tissue . 01 Material submitted: . PART A: colon - SIGMOID POLYP PART B: colon - DESCENDING POLYP . 01 Diagnosis: A. COLON, SIGMOID, POLYP BIOPSY: - BENIGN POLYPOID COLONIC MUCOSA WITH BENIGN LYMPHOID AGGREGATE. - NEGATIVE FOR DYSPLASIA DESPITE MULTIPLE LEVELS ASSESSMENT. --- B. COLON, DESCENDING, POLYP BIOPSY: - TUBULAR ADENOMA. TXN 10/22/2023 1148 Local . 01 Electronically signed: . Juancarlos Lo MD, Pathologist NPI- [id number] . 01 Gross description: . Part A: SIGMOID POLYP: Received in formalin is 1 fragment(s) of ngo, soft tissue measuring 0.3 x 0.2 x 0.2 cm submitted entirely in 1 cassette(s) Part B: DESCENDING POLYP: Received in formalin is 1 fragment(s) of ngo, soft tissue measuring 0.4 x 0.4 x 0.2 cm submitted entirely in 1 cassette(s) /TOSHIA 10/10/2023 2242 Local . 01 Pathologist provided ICD-10: Z12.11 . 01 CPT . 385418, 824129 Specimen Comment: A courtesy copy of this report has been sent to [phone] Performed at: 01 [facility] [address] [place] [address] [address], [place], [place] [id number] MD Felix Burns MD Phone: [phone]
[2023-10-08] MEDS: LACTATED RINGERS 1,000 ML 150 ML IV (13:09)
[2023-10-08 13:13] VITALS: BP 130/86; PULSE 78; RESP 17; TEMP 35.5; O2SAT 97; BMI 27.7
--- NOTE | 2023-10-08 13:54 | PM.PREOP ---
Pre-operative Note Interval Note History & Physical reviewed/Exam performed by Physician: Yes Changes to H&P: No
[2023-10-08 14:30] VITALS: BP 138/96; PULSE 79; RESP 16; TEMP 36.6; O2SAT 95
[2023-10-08 14:35] VITALS: BP 114/80; PULSE 62; RESP 20; O2SAT 96
--- NOTE | 2023-10-08 14:37 | P.OP.COLON_ITS ---
Operative Date/Time/Diagnoses Date of procedure: 10/08/23 Time of procedure: 14:37 Pre-op diagnosis: Abdominal pain Post-op diagnosis: other (Colonic polyps x2) Procedure & Clinicians Study performed: Colonoscopy and polypectomy Same procedure as scheduled: Yes Indications: Diagnostic colonoscopy for abdominal pain left lower quadrant Surgeon: Martínez Wyman Procedure Notes Procedure in detail: The history and physical was performed/updated and the patient is ASA class is 2. The procedure was discussed in detail with the patient. Potential risks complications including infection, bleeding, missed diagnosis, perforation, need for surgery, and were explained. Their questions were answered and informed consent was obtained. Patient was brought to the procedure room and placed standard monitoring equipment. The patient's vital signs were monitored continuously throughout the entire procedure. Prior to starting time-out was performed. The patient was placed in the left lateral recumbent position. Procedural sedation was administered by anesthesia. Examination began with a thorough inspection of the perianal area there was no evidence of fissures, fistulae, external hemorrhoids or cutaneous malignancy. The colonoscopy scope was then placed into the anal canal and was advanced to the cecum, which was identified by the ileocecal valve, the appendiceal orifice and the confluence of the taenia. The scope was then slowly withdrawn examining colon thoroughly in all directions, irrigating it of any residual stool. The scope was retroflexed within the rectum The patient tolerated the procedure well. They will be discharged once criteria are met. The prep was of good/excellent quality. The withdrawl time was 7 minutes. FINDINGS * Descending colon polyp 3 mm removed with biopsy forceps * Sigmoid 3 mm polyp removed with biopsy forceps. Extensive diverticulosis largely contained to the sigmoid colon Specimen(s): other (Descending and sigmoid colon polyps) Impression: Colonic polyps x2. Quite likely the source of her left lower quadrant pain is result of her extensive diverticulosis. Post-procedure Recommendations: High fiber diet Plan for aftercare: Colonoscopy follow-up is dependent on pathology findings. Disposition: same day surgery
[2023-10-08 14:40] VITALS: BP 124/70; PULSE 72; RESP 12; O2SAT 98
[2023-10-08 14:55] VITALS: BP 129/87; PULSE 62; RESP 12; TEMP 36.2; O2SAT 100
== END 2023-10-08 15:05 | disposition home or self-care (01) ==
PROVIDERS: PCP Family Medicine; Referring Provider Surgery; Visit Provider Surgery
PROC: 0DJD8ZZ Inspection of Lower Intestinal Tract, Via Natural or Artificial Opening Endoscopic (ICD-10-PCS; CPT 45378; principal; 2023-10-08 13:45)
DX: R10.9 Unspecified abdominal pain (principal); K57.30 Diverticulosis of large intestine without perforation or abscess without bleeding; D12.4 Benign neoplasm of descending colon; K63.5 Polyp of colon
CPT/HCPCS: 45380; J2704

== ENCOUNTER → 2023-10-11 10:47 | Outpatient (CLI) | payer MEDICARE, OTHER, SELFPAY ==
--- NOTE | 2023-10-11 10:54 | DI.RAD.S_ITS ---
PROCEDURE: XR SHOULDER RT MIN 2V INDICATIONS: Right Shoulder pain TECHNIQUE: 3 views of the shoulder were acquired. COMPARISON: None. FINDINGS: Bones: Mild and [id number]-[id number] glenohumeral and acromioclavicular degenerative changes. No displaced fracture or dislocation. Soft tissues: No suspicious calcifications. IMPRESSION: No acute radiographic abnormality. There are degenerative changes. If there is high concern for further derangement, consider MRI evaluation. Dictated by: Dionisio Piña M.D. on 10/11/2023 at 13:36 Approved by: Dionisio Piña M.D. on 10/11/2023 at 13:37
== END ==
PROVIDERS: PCP Family Medicine; Referring Provider Family Medicine; Visit Provider Family Medicine
DX: M25.511 Pain in right shoulder (principal); G89.29 Other chronic pain
CPT/HCPCS: 73030

== ENCOUNTER → 2023-10-21 13:46 | Outpatient (CLI) | payer MEDICARE, OTHER, SELFPAY ==
--- NOTE | 2023-10-21 13:48 | DI.MRI.S_ITS ---
PROCEDURE: MR SHOULDER RT WO CON INDICATIONS: right shoulder pain/impingement TECHNIQUE: Noncontrast oblique coronal T2 fast spin echo with fat saturation, oblique sagittal T1 spin echo and T2 fast spin echo with fat saturation, axial T1 spin echo and T2 fast spin echo with fat saturation through the shoulder. COMPARISON: None. FINDINGS: Image quality: Excellent. Rotator cuff: There is an intrasubstance tear of the supraspinatus tendon at its attachment on the greater tuberosity involving approximately 20-30% of the tendon thickness. Remaining rotator cuff tendons are intact. Bicipital tendon is within normal loose in the bicipital groove glenoid labrum is grossly unremarkable. There is moderate AC joint degenerative change present. No significant glenohumeral joint degenerative change is seen. There is vsox-ue-akhljrwj tendinopathy involving the supra and infraspinatus tendons. There is a small effusion in the subacromial subdeltoid bursa. IMPRESSION: 1. It is substance tear of the supraspinatus tendon at its attachment on the greater tuberosity involving 20 of 30% of the tendon thickness 2. Jecn-mx-phapcojr tendinopathy involving the supra and infraspinatus tendons. 3. Moderate AC joint degenerative change. 4. Small effusion in the subacromial subdeltoid bursa Dictated by: Osorio Horton M.D. on 10/21/2023 at 15:09 Approved by: Osorio Horton M.D. on 10/21/2023 at 15:14
== END ==
PROVIDERS: PCP Family Medicine; Referring Provider Family Medicine; Visit Provider Family Medicine
DX: M75.20 Bicipital tendinitis, unspecified shoulder (principal); M75.40 Impingement syndrome of unspecified shoulder; M25.511 Pain in right shoulder; S46.011A Strain of muscle(s) and tendon(s) of the rotator cuff of right shoulder, initial encounter; M25.411 Effusion, right shoulder
CPT/HCPCS: 73221

== ENCOUNTER → 2023-12-24 14:03 | Outpatient (CLI) | payer MEDICARE, OTHER, SELFPAY | PROVIDERS: PCP Family Medicine; Referring Provider Orthopaedic Surgery Foot and Ankle Surgery; Visit Provider Orthopaedic Surgery Foot and Ankle Surgery | DX: Z01.818 Encounter for other preprocedural examination (principal); Z01.812 Encounter for preprocedural laboratory examination | CPT/HCPCS: 93005 ==

== ENCOUNTER → 2024-01-14 13:20 | Outpatient (CLI) | payer MEDICARE, OTHER, SELFPAY ==
[2024-01-14 14:59] LABS: Add Manual Diff / Slide Review NO; Basophils Absolute Auto 0 /uL (0-100); Basophils Percent Auto 0.6 % (0-2); Eosinophils Absolute Auto 100 /uL (0-450); Eosinophils Percent Auto 1.8 % (2-4); Hematocrit 44.7 % (36-46); Hemoglobin 15.1 g/dL (12.0-16.0); Lymphocytes Absolute Auto 1700 /uL (1100-4500); Lymphocytes Percent Auto 27.9 % (25-40); Mean Corpuscular HGB Conc 33.8 % (30-36); Mean Corpuscular Volume 91.6 fL (80-100); Monocytes Absolute Auto 400 /uL (0-900); Monocytes Percent Auto 7.1 % (3-14); Neutrophils Absolute Auto 3800 /uL (1500-7000); Neutrophils Percent Auto 62.6 % (50-75); Platelet Count 229 X10^3/uL (150-400); Red Blood Cell Count 4.88 X10^6/uL (4.0-5.2); Red Cell Distribution Width 13.1 % (11.6-14.8); White Blood Cell Count 6.1 X10^3/uL (4.5-11.0)
[2024-01-14 15:22] LABS: BUN Creatinine Ratio 27.7 (6-22); Blood Urea Nitrogen 23 mg/dL (7-17); Calcium 9.9 mg/dL (8.4-10.2); Carbon Dioxide 26 mmol/L (22-32); Chloride 101 mmol/L (98-107); Estimated Glomerular Filt Rate > 60 mL/min (>60); Glucose 114 mg/dL (80-110); HEMOLYSIS < 15 (0-50); Potassium 4.4 mmol/L (3.4-5.1); Sodium 136 mmol/L (137-145)
== END ==
LOC: LAB 13:26
PROVIDERS: PCP Family Medicine; Referring Provider Orthopaedic Surgery Foot and Ankle Surgery; Visit Provider Orthopaedic Surgery Foot and Ankle Surgery
DX: Z01.812 Encounter for preprocedural laboratory examination (principal)
CPT/HCPCS: 36415; 80048; 85025

== ENCOUNTER → 2024-05-22 14:05 | Outpatient (CLI) | payer MEDICARE, OTHER, SELFPAY ==
--- NOTE | 2024-05-22 14:07 | DI.MG.S_ITS ---
BILATERAL DIGITAL SCREENING MAMMOGRAM 3D/2D WITH CAD: 05/22/2024 CLINICAL: Routine screening. Comparison is made to exams dated: 02/25/2023 mammogram, 02/22/2022 mammogram, 08/03/2020 mammogram, and 08/26/2014 mammogram - [facility]. Both breasts are heterogeneously dense, which may obscure small masses (category c / 51-75% glandular tissue). Current study was also evaluated with a Computer Aided Detection (CAD) system. No significant masses, calcifications, or other findings are seen in either breast. There has been no significant interval change. IMPRESSION: NEGATIVE There is no mammographic evidence of malignancy. A 1 year screening mammogram is recommended. Based on the Tyrer Cuzick model (a risk assessment model) the patient's lifetime risk is 8.1% and her 10 year risk is 4.8%. According to the ACR, ACS, and NCCN guidelines, an annual breast MRI exam along with mammogram is recommended if the patient's lifetime risk is 20% or greater. This exam was interpreted at Station ID: [id number]. NOTE: For mammograms, a report in lay terms will be sent to the patient. Approximately 15% of breast malignancies will not be visualized mammographically. In the management of a palpable breast mass, a negative mammogram must not discourage biopsy of a clinically suspicious lesion. Electronically Signed By: Bill pederson/pilo:05/22/2024 16:29:51 letter sent: Normal Exam ACR BI-RADS Category 1: Negative 3341F
== END ==
LOC: MAMMO 14:06
PROVIDERS: PCP Family Medicine; Referring Provider Family Medicine; Visit Provider Family Medicine
DX: Z12.31 Encounter for screening mammogram for malignant neoplasm of breast (principal); R92.333 Mammographic heterogeneous density, bilateral breasts
CPT/HCPCS: 77063; 77067

== ENCOUNTER → 2024-06-01 07:29 | Outpatient (CLI) | payer MEDICARE, OTHER, SELFPAY ==
--- NOTE | 2024-06-01 07:31 | DI.RAD.S_ITS ---
PROCEDURE: XR TOE RT MIN 2V INDICATIONS: Right great toe injury TECHNIQUE: 3 views of the right toe(s) acquired. COMPARISON: None. FINDINGS: Bones: No fractures or dislocations. Severe 1st MTP joint osteoarthritis is seen with prominent dorsal marginal osteophyte formation concerning for hallux limitus. No suspicious bony lesions. Soft tissues: No suspicious soft tissue densities. IMPRESSION: No acute fracture or dislocation. Severe 1st MTP joint osteoarthritis with suggestion of hallux limitus. Soft tissue swelling around 1st MTP joint. Dictated by: David Amador M.D. on 06/01/2024 at 10:34 Approved by: David Amador M.D. on 06/01/2024 at 10:35
== END ==
LOC: RAD 07:30
PROVIDERS: PCP Family Medicine; Referring Provider Nurse Practitioner Family; Visit Provider Nurse Practitioner Family
DX: S90.129A Contusion of unspecified lesser toe(s) without damage to nail, initial encounter (principal); M19.071 Primary osteoarthritis, right ankle and foot; X58.XXXA Exposure to other specified factors, initial encounter
CPT/HCPCS: 73660

== ENCOUNTER → 2024-07-13 13:16 | Outpatient (CLI) | payer MEDICARE, OTHER, SELFPAY ==
--- NOTE | 2024-07-13 13:18 | DI.MRI.S_ITS ---
PROCEDURE: MR KNEE LT WO CON INDICATIONS: SPRAIN OF MEDIAL COLLATERAL LIGAMENT LT KNEE TECHNIQUE: Noncontrast sagittal PD fast spin echo and T2 fast spin echo with fat saturation, sagittal 3-D FLASH with fat saturation; coronal T1 spin echo and PD fast spin echo with fat saturation, and axial PD fast spin echo with fat saturation through the knee. COMPARISON: [facility], CR, XR KNEE 4+ VIEWS LEFT, 06/08/2024, 17:43. [facility], MR, MR KNEE RT WO CON, 03/25/2020, 11:50. FINDINGS: Image quality: Excellent. Anterior cruciate ligament: There is complete midsubstance tearing of the anterior cruciate ligament. Posterior cruciate ligament: Intact. Medial collateral ligament: Mild edema surrounding the medial collateral ligament is consistent with a low-grade sprain. Lateral collateral ligament: Intact. Medial meniscus: Complex tearing is seen at the junction of the posterior horn and body of the medial meniscus with radial and horizontal oblique components. Posterior horn appears diminutive. Lateral meniscus: Intact. Medial and lateral tendons: The semimembranosus tendon insertions appear intact. Visualized portions of the pes anserinus tendons appear normal. The popliteus tendon is intact. Iliotibial band appears normal. Anterior structures: The quadriceps and patellar tendons appear intact. No patellar subluxation. No femoral trochlear dysplasia or ventral trochlear prominence. No edema in the infrapatellar fat pad. Bones and cartilage: Minimally displaced fracture of the posterior portion of the medial tibial plateau measuring approximately the 21 x 10 x 9 mm with osseous edema. There is focal fissuring of the overlying articular cartilage. Small impaction fracture of the far posterior portion of the lateral tibial plateau. Mild focal osseous edema is seen at the central weight-bearing portion of the lateral femoral condyle. Medial femorotibial cartilage: Grade 3 chondromalacia throughout the weight-bearing portion of the medial femorotibial compartment. Focal cartilage fissuring is seen adjacent to the fracture. Lateral femorotibial cartilage: Mild depression of the far posterior portion of the lateral tibial plateau. Patellofemoral cartilage: Full-thickness cartilage loss at the median ridge of the patella and the adjacent portions of the medial and lateral facets with subchondral cystic changes and edema. Partial-thickness cartilage irregularity is seen at the medial femoral trochlea. Soft tissues: Moderate joint effusion is present. Small medial popliteal cyst. Prepatellar subcutaneous soft tissue edema and trace fluid are noted. IMPRESSION: 1. Complete midsubstance tearing of the anterior cruciate ligament. 2. Grade 1 sprain of the medial collateral ligament. 3. Nondisplaced fracture at the far posterior portion of the medial tibial plateau. Minimally depressed impaction fracture at the far posterior portion of the lateral tibial plateau. Mild adjacent osseous edema. Small osseous contusion is also seen at the anterior weight-bearing portion of the lateral femoral condyle consistent with a pivot-shift injury mechanism. 4. Complex tearing at the junction of the posterior horn and body of the medial meniscus with shallow radial and horizontal oblique components. Diminutive appearance of the posterior horn. 5. Small area of full-thickness cartilage loss in the patellofemoral compartment. Denies grade 3 chondromalacia in the weight-bearing portion of the medial femorotibial compartment. 6. Moderate joint effusion. Small medial popliteal cyst. Approved by: Juanjo Piña M.D. on 07/14/2024 at 13:15
== END ==
PROVIDERS: PCP Family Medicine; Referring Provider Physician Assistant Surgical; Visit Provider Physician Assistant Surgical
DX: S82.145A Nondisplaced bicondylar fracture of left tibia, initial encounter for closed fracture (principal); S83.232A Complex tear of medial meniscus, current injury, left knee, initial encounter; S83.512A Sprain of anterior cruciate ligament of left knee, initial encounter; S83.412A Sprain of medial collateral ligament of left knee, initial encounter; M25.462 Effusion, left knee; M71.22 Synovial cyst of popliteal space [Baker], left knee
CPT/HCPCS: 73721

== ENCOUNTER 2024-09-21 08:15 | Outpatient (RCR) | payer MEDICARE, OTHER, SELFPAY ==
--- NOTE | 2024-08-11 13:50 | PT.OIE ---
Current Diagnoses Pain in left knee (08/11/24) Strain of other muscle(s) and tendon(s) at lower leg level, left leg, initial encounter (08/11/24) Past Medical History (Last Updated 09/03/23 @ 13:35 by Charlette Peace DO) Chicken pox History of flexible sigmoidoscopy (1988) History of [place] measles History of sciatica Left groin pain Left hip pain Left inguinal hernia (1988) Mumps Pneumonia Post-menopausal Rheumatic fever Scarlet fever Urticarial rash Vasovagal syncope Wart Past Surgical History (Last Reviewed 10/10/20 @ 16:27 by CRISTIAN Webber) Status post colonoscopy (2004) Status post colonoscopy (2013) Status post dilation and curettage (1987) Status post hernia repair (1988) Status post tonsillectomy and adenoidectomy (~1959) Visit Care Team Role Provider Type Charlette Peace DO Family Provider Physician Primary Care Provider Specialty: Medical Address: [address] [place] [address], [address], [address] Email: [email or web address] Saeid Almanza MD Attending Provider Physician Referring Provider Specialty: Orthopedics Orthopedic Surgery Address: [address] [place] [address], [place], [address] Email: [email or web address] Physical Therapy Initial Evaluation PT-OP-A Visit Information Start: 08/10/24 16:17 Freq: Status: Active Protocol: Document 08/11/24 09:48 MB (Rec: 08/11/24 10:04 CALEB [id number]) Out-Patient Physical Therapy Visit Information Visit Information Visit Type Initial Evaluation Visit Note Medicare Progress note by 09/10/24 Visit Start Time 09:48 Visit Stop Time 10:28 Visit Number 1 Number of RETAIL SALES PROFESSIONAL Visits 0 Evaluation Information Evaluation Date 08/11/24 Precautions Precautions Many changes on left knee MRI, in prior tests and also in EMR PT-OP-B Current Condition Start: 08/10/24 16:17 Freq: Status: Active Protocol: Document 08/11/24 09:48 MB (Rec: 08/11/24 10:04 MB [id number]) Current Condition History of Current Condition Onset Date May 2024 Current Complaints Pain, PTSD and fear of hitting something uneven and falling History of Current Condition Pt states that in May or around then, she was walking in Saturday and a dog came for her dog and ran into her left knee from the lateral side. She heard a pop and she went down and experienced 10/ 10 pain and the ambulance took her to the hospital. Pt has a fear of leg giving way. Pt has that wraps around. Pt likes to snow ski and injured her right knee during COVID and did not have surgery she feels d/t COVID restrictions. She saw Dr. Almanza for left knee in June and MRI was done and surgery was not recommended. Neither was an injection. Pt is retired. She likes to ride her bike outside and she has a gutierrez retriever to walk . Dismounting off the bike is troublesome. Pt denies numbness and tingling in the leg. Prior Treatments and Tests Left knee MRI 07/13/24: IMPRESSION: 1. Complete midsubstance tearing of the anterior cruciate ligament. 2. Grade 1 sprain of the medial collateral ligament. 3. Nondisplaced fracture at the far posterior portion of the medial tibial plateau. Minimally depressed impaction fracture at the far posterior portion of the lateral tibial plateau. Mild adjacent osseous edema. Small osseous contusion is also seen at the anterior weight-bearing portion of the lateral femoral condyle consistent with a pivot-shift injury mechanism. 4. Complex tearing at the junction of the posterior horn and body of the medial meniscus with shallow radial and horizontal oblique components. Diminutive appearance of the posterior horn. 5. Small area of full- thickness cartilage loss in the patellofemoral compartment . Denies grade 3 chondromalacia in the weight-bearing portion of the medial femorotibial compartment. 6. Moderate joint effusion. Small medial popliteal cyst. Treatment Goals Patient/Caregiver Goals Left knee stability PT-OP-C Subjective Start: 08/10/24 16:17 Freq: Status: Active Protocol: Document 08/11/24 09:48 MB (Rec: 08/11/24 10:04 MB [id number]) OP-PT Subjective Patient Comments Patient Comments See history of current condition Patient Questionnaires Lower Extremity Functional Scale LEFS Score 58 LEFS Impairment 20 to 39% Impaired (Score 48- 62) PT-OP-G Mobility & Gait Start: 08/10/24 16:17 Freq: Status: Active Protocol: Document 08/11/24 09:48 MB (Rec: 08/11/24 13:48 MB [id number]) OP Gait Assessment Comments Gait Comments Gait training reveals very faint whip-like movement of left distal LE with stepping, decreased muscle mass left plantar flexors, overpronation of left rearfoot and tibial torsion and increased Won angle LLE with gait that corrects with standing and pt states she notes she has changed her gait. PT-OP-J Posture/Palpation/Skin Start: 08/10/24 16:17 Freq: Status: Active Protocol: Document 08/11/24 09:48 MB (Rec: 08/11/24 13:48 MB [id number]) Posture Evaluation Comments Posture Comments Standing posture with shoes off: forwad head, Dowager's hump, decreased thoracic kyphosis with mild right convexity, right iliac crest higher than left about 1/4. PT-OP-K Range of Motion Start: 08/10/24 16:17 Freq: Status: Active Protocol: Document 08/11/24 09:48 MB (Rec: 08/11/24 13:48 MB [id number]) Knee Goniometric Range of Motion Knee Left Knee ROM WFL Yes Patient Position Supine Comments 5-120 deg in supine Right Knee ROM WFL Yes Patient Position Supine Comments 0-135 deg in supine Ankle and Foot Goniometric Range of Motion Ankle and Foot ROM Limitations Comments Right great toe changes and decreased great toe extension after surgery in the past PT-OP-M Strength Start: 08/10/24 16:17 Freq: Status: Active Protocol: Document 08/11/24 09:48 MB (Rec: 08/11/24 13:48 MB [id number]) Hip Strength Hip Manual Muscle Testing Bilateral Flexion (L2) 5 Normal Abduction 5 Normal Knee Strength Knee Manual Muscle Testing Left Flexion (S2) 4 Good Extension (L3) 4 Good Right Flexion (S2) 5 Normal Extension (L3) 5 Normal Ankle/Foot Strength Ankle and Foot Manual Muscle Testing Left Dorsiflexion (L4) 5 Normal Comments Pt performs 10 reps heel raises with balance support on wall and anterior knee appears unstable and she has pain Right Dorsiflexion (L4) 5 Normal Plantarflexion (S1) 5 Normal Toe Strength Toe Manual Muscle Testing Right Great Toe Extension 3+ Fair+ Left Great Toe Extension 3+ Fair+ PT-OP-Q Treatments Start: 08/10/24 16:17 Freq: Status: Active Protocol: Document 08/11/24 09:48 MB (Rec: 08/11/24 10:26 MB [id number]) Therapeutic Exercises Supine Exercises Pelvic realignment exercises Side bilateral Equipment Used Blue ball Reps/Minutes 5 reps, 3 sec hold, exercises in order Comments Feet together ball squeeze, knee opp ankle iso, thigh press down Manual Therapy Treatment Consent Patient gave verbal consent for manual Yes treatment Other Other Manual Treatments KT black tape c strip under knee, B I strips, medial and lateral knee for support Self-Care/Home Management Treatment Education Other Education Education to pt about proper sleeping position with use of pillow between legs in side lying and pillow under knees in supine, benefits of ice, benefits of staying on top of hydration, safety of stationary upright bike compared to outdoor cycling at this time, benefits of KT PT-OP-T Assessment and Plan Start: 08/10/24 16:17 Freq: Status: Active Protocol: Document 08/11/24 09:48 MB (Rec: 08/11/24 13:48 MB [id number]) Physical Therapy Assessment Rehab Potential Rehabilitation Potential Fair Evaluation Complexity Number of Personal Factors/Comorbidities 1-2 Number of Body Systems Impaired 1-2 Clinical Presentation at Evaluation Unstable Impairments Impairments Activity Tolerance,Balance, Coordination,Functional Activities,Functional Mobility ,Gait,Pain,Posture,ROM,Soft Tissue Mobility,Strength Goals 4 Impairment LLE weakness Penitentiary Goal (LTG) Pt will present with 5/5 left knee extension and flexion and ankle PF strength to improve gait pattern and overall function. LTG Duration 8 weeks 3 Impairment Lack of HEP Penitentiary Goal (LTG) Pt will perform HEP with I including pelvic realignment, flexibility, strengthening, gait and balance activities to improve functional strength and balance. LTG Duration 8 weeks 2 Impairment Slow gait Penitentiary Goal (LTG) Pt will gait train at least 1700 feet in 6 minutes to improve community ambulation and gait speed and to reflect norms for pt's age and gender. LTG Duration 8 weeks 1 Impairment LEF score reflects 27.5% impairment Penitentiary Goal (LTG) Pt will present with LEF score reflecting no more than 20% impairment to reflect improved function. LTG Duration 8 weeks Assessment Summary Assessment Pt is a 68 y/o female presenting with injury to left knee over the summer when a dog ran into her left knee from the side and she heard a popping and went straight down . MRI reveals many changes including complete ACL tear, sprain MCL, nondisplaced fracture medial plateau tibia and lateral plateau and complex tear medial meniscus and other findings. Pt presents with weakness, imbalance, poor gait, fear of falling and instability and pain. Pt is active, likes to ski and ride her outdoor bike. Will initiate PT to work on pain control, balance and strengthening but pt may ultimately need surgery given she wishes to return to active sports. Will trial PT and refer back to orthopedic surgeon if needed. Physical Therapy Plan Frequency and Duration Frequency of Treatment 1-2x/wk Duration of treatment (weeks) 8 Plan of Care Start Date 08/11/24 Plan of Care End Date 10/12/24 Therapeutic Interventions Therapeutic Interventions Balance Training,Canalithic Repositioning,Coordination Training,Gait Training,Home Exercise Program,Joint Mobilizations,Manual Therapy, Neuromuscular Re-education, Patient/Caregiver Education, Self-Care/Home Management,Soft Tissue Mobilization,Taping, Therapeutic Activities, Therapeutic Exercises Modalities Cold Pack/Ice Massage,Electric Stimulation,Hot Packs, Ultrasound Next Visit Focus/Plan Next Note Type Treatment Note Next Visit Plan Review pelvic realignment exercises and check in about KT Initiate hamstring and brisa stretches, consider SLR for strengthening Advance to SLS and other strengthening exercises, consider compression hose
--- NOTE | 2024-08-17 09:45 | PT.OTN ---
Current Diagnoses Pain in left knee (08/17/24) Strain of other muscle(s) and tendon(s) at lower leg level, left leg, initial encounter (08/17/24) Physical Therapy Treatment Note PT-OP-A Visit Information Start: 08/10/24 16:17 Freq: Status: Active Protocol: Document 08/17/24 08:58 MB (Rec: 08/17/24 09:12 MB [id number]) Out-Patient Physical Therapy Visit Information Visit Information Visit Type Treatment Note Visit Note Medicare Progress note by 09/10/24 Visit Start Time 08:58 Visit Stop Time 09:38 Visit Number 2 Number of HEALTH ANALYTICS CONSULTANT Visits 0 Evaluation Information Evaluation Date 08/11/24 Precautions Precautions Many changes on left knee MRI, in prior tests and also in EMR PT-OP-B Current Condition Start: 08/10/24 16:17 Freq: Status: Active Protocol: Document 08/11/24 09:48 MB (Rec: 08/11/24 10:04 MB [id number]) Current Condition History of Current Condition Onset Date May 2024 Current Complaints Pain, PTSD and fear of hitting something uneven and falling History of Current Condition Pt states that in May or around then, she was walking in Saturday and a dog came for her dog and ran into her left knee from the lateral side. She heard a pop and she went down and experienced 10/ 10 pain and the ambulance took her to the hospital. Pt has a fear of leg giving way. Pt has that wraps around. Pt likes to snow ski and injured her right knee during COVID and did not have surgery she feels d/t COVID restrictions. She saw Dr. Almanza for left knee in June and MRI was done and surgery was not recommended. Neither was an injection. Pt is retired. She likes to ride her bike outside and she has a gutierrez retriever to walk . Dismounting off the bike is troublesome. Pt denies numbness and tingling in the leg. Prior Treatments and Tests Left knee MRI 07/13/24: IMPRESSION: 1. Complete midsubstance tearing of the anterior cruciate ligament. 2. Grade 1 sprain of the medial collateral ligament. 3. Nondisplaced fracture at the far posterior portion of the medial tibial plateau. Minimally depressed impaction fracture at the far posterior portion of the lateral tibial plateau. Mild adjacent osseous edema. Small osseous contusion is also seen at the anterior weight-bearing portion of the lateral femoral condyle consistent with a pivot-shift injury mechanism. 4. Complex tearing at the junction of the posterior horn and body of the medial meniscus with shallow radial and horizontal oblique components. Diminutive appearance of the posterior horn. 5. Small area of full- thickness cartilage loss in the patellofemoral compartment . Denies grade 3 chondromalacia in the weight-bearing portion of the medial femorotibial compartment. 6. Moderate joint effusion. Small medial popliteal cyst. Treatment Goals Patient/Caregiver Goals Left knee stability PT-OP-C Subjective Start: 08/10/24 16:17 Freq: Status: Active Protocol: Document 08/17/24 08:58 MB (Rec: 08/17/24 09:12 MB [id number]) OP-PT Subjective Patient Comments Patient Comments Pt's son's cat attacked her three days ago and she has a lot of scratches and a bite on her left arm. It is painful. She went to the walk-in clinic and she is on oral antibiotics. She did not take of KT. She did pelvic realignment exercises and heel raises. PT re-ed pt not to progress exercises such as heel raises until cleared with PT. Pt walked the dog on Saturday and it was a slow walk. PT-OP-G Mobility & Gait Start: 08/10/24 16:17 Freq: Status: Active Protocol: Document 08/11/24 09:48 MB (Rec: 08/11/24 13:48 MB [id number]) OP Gait Assessment Comments Gait Comments Gait training reveals very faint whip-like movement of left distal LE with stepping, decreased muscle mass left plantar flexors, overpronation of left rearfoot and tibial torsion and increased Won angle LLE with gait that corrects with standing and pt states she notes she has changed her gait. PT-OP-J Posture/Palpation/Skin Start: 08/10/24 16:17 Freq: Status: Active Protocol: Document 08/11/24 09:48 MB (Rec: 08/11/24 13:48 MB [id number]) Posture Evaluation Comments Posture Comments Standing posture with shoes off: forwad head, Dowager's hump, decreased thoracic kyphosis with mild right convexity, right iliac crest higher than left about 1/4. PT-OP-K Range of Motion Start: 08/10/24 16:17 Freq: Status: Active Protocol: Document 08/11/24 09:48 MB (Rec: 08/11/24 13:48 MB [id number]) Knee Goniometric Range of Motion Knee Left Knee ROM WFL Yes Patient Position Supine Comments 5-120 deg in supine Right Knee ROM WFL Yes Patient Position Supine Comments 0-135 deg in supine Ankle and Foot Goniometric Range of Motion Ankle and Foot ROM Limitations Comments Right great toe changes and decreased great toe extension after surgery in the past PT-OP-M Strength Start: 08/10/24 16:17 Freq: Status: Active Protocol: Document 08/11/24 09:48 MB (Rec: 08/11/24 13:48 MB [id number]) Hip Strength Hip Manual Muscle Testing Bilateral Flexion (L2) 5 Normal Abduction 5 Normal Knee Strength Knee Manual Muscle Testing Left Flexion (S2) 4 Good Extension (L3) 4 Good Right Flexion (S2) 5 Normal Extension (L3) 5 Normal Ankle/Foot Strength Ankle and Foot Manual Muscle Testing Left Dorsiflexion (L4) 5 Normal Comments Pt performs 10 reps heel raises with balance support on wall and anterior knee appears unstable and she has pain Right Dorsiflexion (L4) 5 Normal Plantarflexion (S1) 5 Normal Toe Strength Toe Manual Muscle Testing Right Great Toe Extension 3+ Fair+ Left Great Toe Extension 3+ Fair+ PT-OP-Q Treatments Start: 08/10/24 16:17 Freq: Status: Active Protocol: Document 08/17/24 08:58 MB (Rec: 08/17/24 09:13 MB [id number]) Therapeutic Exercises Supine Exercises Charly stretch Side bilateral Comments 30-45 sec with opposite leg to chest SLR with opposite leg bent Side bilateral Reps/Minutes 5 reps, each leg Comments Counting on the way up and down Pelvic realignment exercises Side bilateral Equipment Used Blue ball Reps/Minutes 5 reps, 3 sec hold, exercises in order Comments Feet together ball squeeze, knee opp ankle iso, thigh press down Manual Therapy Treatment Consent Patient gave verbal consent for manual Yes treatment Other Other Manual Treatments Pt supine with head and legs supported: STM and positional release left quads and medial hamstring and most tension medial hamstring Self-Care/Home Management Treatment Education Other Education Measured ankle, proximal gordon and thigh for compression hose idea for size and ed pt in benefits of thigh high compression hose, grossly 15- 20 mmHg, ongoing ed on icing and pillow use between arms PT-OP-T Assessment and Plan Start: 08/10/24 16:17 Freq: Status: Active Protocol: Document 08/17/24 08:58 MB (Rec: 08/17/24 09:12 MB [id number]) Physical Therapy Assessment Rehab Potential Rehabilitation Potential Fair Evaluation Complexity Number of Personal Factors/Comorbidities 1-2 Number of Body Systems Impaired 1-2 Clinical Presentation at Evaluation Unstable Impairments Impairments Activity Tolerance,Balance, Coordination,Functional Activities,Functional Mobility ,Gait,Pain,Posture,ROM,Soft Tissue Mobility,Strength Goals 4 Impairment LLE weakness Prison Goal (LTG) Pt will present with 5/5 left knee extension and flexion and ankle PF strength to improve gait pattern and overall function. LTG Duration 8 weeks 3 Impairment Lack of HEP Fruit Raiser Goal (LTG) Pt will perform HEP with I including pelvic realignment, flexibility, strengthening, gait and balance activities to improve functional strength and balance. LTG Duration 8 weeks 2 Impairment Slow gait Prison Goal (LTG) Pt will gait train at least 1700 feet in 6 minutes to improve community ambulation and gait speed and to reflect norms for pt's age and gender. LTG Duration 8 weeks 1 Impairment LEF score reflects 27.5% impairment Prison Goal (LTG) Pt will present with LEF score reflecting no more than 20% impairment to reflect improved function. LTG Duration 8 weeks Assessment Summary Assessment Pt has not been thinking about left knee as much since cat injured her left arm. PT encourages pt to follow-up with her doctor about her left arm. Pt is very tender medial hamstring. Physical Therapy Plan Frequency and Duration Frequency of Treatment 1-2x/wk Duration of treatment (weeks) 8 Plan of Care Start Date 08/11/24 Plan of Care End Date 10/12/24 Therapeutic Interventions Therapeutic Interventions Balance Training,Canalithic Repositioning,Coordination Training,Gait Training,Home Exercise Program,Joint Mobilizations,Manual Therapy, Neuromuscular Re-education, Patient/Caregiver Education, Self-Care/Home Management,Soft Tissue Mobilization,Taping, Therapeutic Activities, Therapeutic Exercises Modalities Cold Pack/Ice Massage,Electric Stimulation,Hot Packs, Ultrasound Next Visit Focus/Plan Next Note Type Treatment Note Next Visit Plan Ongoing manual work Try upright bike to see how pt feels, initiate hamstring, hip rotator stretches Advance to SLS and other strengthening exercises for hips, ankle and knees
--- NOTE | 2024-08-19 08:11 | PT.OTN ---
Current Diagnoses Pain in left knee (08/19/24) Strain of other muscle(s) and tendon(s) at lower leg level, left leg, initial encounter (08/19/24) Physical Therapy Treatment Note PT-OP-A Visit Information Start: 08/10/24 16:17 Freq: Status: Active Protocol: Document 08/19/24 07:28 MB (Rec: 08/19/24 08:11 MB [id number]) Out-Patient Physical Therapy Visit Information Visit Information Visit Type Treatment Note Visit Note Medicare Progress note by 09/10/24 Visit Start Time 07:28 Visit Stop Time 08:08 Visit Number 3 Number of GREY GOODS EXAMINER Visits 0 Evaluation Information Evaluation Date 08/11/24 Precautions Precautions Many changes on left knee MRI, in prior tests and also in EMR PT-OP-B Current Condition Start: 08/10/24 16:17 Freq: Status: Active Protocol: Document 08/11/24 09:48 MB (Rec: 08/11/24 10:04 MB [id number]) Current Condition History of Current Condition Onset Date May 2024 Current Complaints Pain, PTSD and fear of hitting something uneven and falling History of Current Condition Pt states that in May or around then, she was walking in Saturday and a dog came for her dog and ran into her left knee from the lateral side. She heard a pop and she went down and experienced 10/ 10 pain and the ambulance took her to the hospital. Pt has a fear of leg giving way. Pt has that wraps around. Pt likes to snow ski and injured her right knee during COVID and did not have surgery she feels d/t COVID restrictions. She saw Dr. Almanza for left knee in June and MRI was done and surgery was not recommended. Neither was an injection. Pt is retired. She likes to ride her bike outside and she has a gutierrez retriever to walk . Dismounting off the bike is troublesome. Pt denies numbness and tingling in the leg. Prior Treatments and Tests Left knee MRI 07/13/24: IMPRESSION: 1. Complete midsubstance tearing of the anterior cruciate ligament. 2. Grade 1 sprain of the medial collateral ligament. 3. Nondisplaced fracture at the far posterior portion of the medial tibial plateau. Minimally depressed impaction fracture at the far posterior portion of the lateral tibial plateau. Mild adjacent osseous edema. Small osseous contusion is also seen at the anterior weight-bearing portion of the lateral femoral condyle consistent with a pivot-shift injury mechanism. 4. Complex tearing at the junction of the posterior horn and body of the medial meniscus with shallow radial and horizontal oblique components. Diminutive appearance of the posterior horn. 5. Small area of full- thickness cartilage loss in the patellofemoral compartment . Denies grade 3 chondromalacia in the weight-bearing portion of the medial femorotibial compartment. 6. Moderate joint effusion. Small medial popliteal cyst. Treatment Goals Patient/Caregiver Goals Left knee stability PT-OP-C Subjective Start: 08/10/24 16:17 Freq: Status: Active Protocol: Document 08/19/24 07:28 MB (Rec: 08/19/24 08:11 MB [id number]) OP-PT Subjective Patient Comments Patient Comments Pt states that her left arm bothered her last night. She went to see PA and she has extended dose of antibiotics. Her stationary bike seat arrives today. PT-OP-G Mobility & Gait Start: 08/10/24 16:17 Freq: Status: Active Protocol: Document 08/11/24 09:48 MB (Rec: 08/11/24 13:48 MB [id number]) OP Gait Assessment Comments Gait Comments Gait training reveals very faint whip-like movement of left distal LE with stepping, decreased muscle mass left plantar flexors, overpronation of left rearfoot and tibial torsion and increased Won angle LLE with gait that corrects with standing and pt states she notes she has changed her gait. PT-OP-J Posture/Palpation/Skin Start: 08/10/24 16:17 Freq: Status: Active Protocol: Document 08/11/24 09:48 MB (Rec: 08/11/24 13:48 MB [id number]) Posture Evaluation Comments Posture Comments Standing posture with shoes off: forwad head, Dowager's hump, decreased thoracic kyphosis with mild right convexity, right iliac crest higher than left about 1/4. PT-OP-K Range of Motion Start: 08/10/24 16:17 Freq: Status: Active Protocol: Document 08/11/24 09:48 MB (Rec: 08/11/24 13:48 MB [id number]) Knee Goniometric Range of Motion Knee Left Knee ROM WFL Yes Patient Position Supine Comments 5-120 deg in supine Right Knee ROM WFL Yes Patient Position Supine Comments 0-135 deg in supine Ankle and Foot Goniometric Range of Motion Ankle and Foot ROM Limitations Comments Right great toe changes and decreased great toe extension after surgery in the past PT-OP-M Strength Start: 08/10/24 16:17 Freq: Status: Active Protocol: Document 08/11/24 09:48 MB (Rec: 08/11/24 13:48 MB [id number]) Hip Strength Hip Manual Muscle Testing Bilateral Flexion (L2) 5 Normal Abduction 5 Normal Knee Strength Knee Manual Muscle Testing Left Flexion (S2) 4 Good Extension (L3) 4 Good Right Flexion (S2) 5 Normal Extension (L3) 5 Normal Ankle/Foot Strength Ankle and Foot Manual Muscle Testing Left Dorsiflexion (L4) 5 Normal Comments Pt performs 10 reps heel raises with balance support on wall and anterior knee appears unstable and she has pain Right Dorsiflexion (L4) 5 Normal Plantarflexion (S1) 5 Normal Toe Strength Toe Manual Muscle Testing Right Great Toe Extension 3+ Fair+ Left Great Toe Extension 3+ Fair+ PT-OP-Q Treatments Start: 08/10/24 16:17 Freq: Status: Active Protocol: Document 08/19/24 07:28 MB (Rec: 08/19/24 08:11 MB [id number]) Cardio Equipment Bicycle (Upright) Duration (Minutes) 10 Resistance 7 Seat Position 7 Therapeutic Exercises Supine Exercises Hip rotator stretch Side bilateral Comments 30 sec each leg Hamstring stretch with strap, adductor and TFL stretches Side bilateral Equipment Used Gait belt Reps/Minutes APs and holding 30 sec Comments Hamstring, adductor and TFL stretches using belt Manual Therapy Treatment Consent Patient gave verbal consent for manual Yes treatment Other Other Manual Treatments Pt supine with head and legs supported: STM and positional release left medial hamstring and most tension medial hamstring, black KT c strip under knee, B I strips, medial and lateral knee for support PT-OP-T Assessment and Plan Start: 08/10/24 16:17 Freq: Status: Active Protocol: Document 08/19/24 07:28 MB (Rec: 08/19/24 08:11 MB [id number]) Physical Therapy Assessment Rehab Potential Rehabilitation Potential Fair Evaluation Complexity Number of Personal Factors/Comorbidities 1-2 Number of Body Systems Impaired 1-2 Clinical Presentation at Evaluation Unstable Impairments Impairments Activity Tolerance,Balance, Coordination,Functional Activities,Functional Mobility ,Gait,Pain,Posture,ROM,Soft Tissue Mobility,Strength Goals 4 Impairment LLE weakness Cable Television Line Technician Goal (LTG) Pt will present with 5/5 left knee extension and flexion and ankle PF strength to improve gait pattern and overall function. LTG Duration 8 weeks 3 Impairment Lack of HEP Shelter Goal (LTG) Pt will perform HEP with I including pelvic realignment, flexibility, strengthening, gait and balance activities to improve functional strength and balance. LTG Duration 8 weeks 2 Impairment Slow gait Shelter Goal (LTG) Pt will gait train at least 1700 feet in 6 minutes to improve community ambulation and gait speed and to reflect norms for pt's age and gender. LTG Duration 8 weeks 1 Impairment LEF score reflects 27.5% impairment Cable Television Line Technician Goal (LTG) Pt will present with LEF score reflecting no more than 20% impairment to reflect improved function. LTG Duration 8 weeks Assessment Summary Assessment Pt con't with left arm issues. Progressed stationary bike and flexibility exercises today. Physical Therapy Plan Frequency and Duration Frequency of Treatment 1-2x/wk Duration of treatment (weeks) 8 Plan of Care Start Date 08/11/24 Plan of Care End Date 10/12/24 Therapeutic Interventions Therapeutic Interventions Balance Training,Canalithic Repositioning,Coordination Training,Gait Training,Home Exercise Program,Joint Mobilizations,Manual Therapy, Neuromuscular Re-education, Patient/Caregiver Education, Self-Care/Home Management,Soft Tissue Mobilization,Taping, Therapeutic Activities, Therapeutic Exercises Modalities Cold Pack/Ice Massage,Electric Stimulation,Hot Packs, Ultrasound Next Visit Focus/Plan Next Note Type Treatment Note Next Visit Plan Ongoing manual work Advance to SLS and other strengthening exercises for hips, ankle and knees
--- NOTE | 2024-08-25 08:49 | PT.OTN ---
Current Diagnoses Pain in left knee (08/25/24) Strain of other muscle(s) and tendon(s) at lower leg level, left leg, initial encounter (08/25/24) Physical Therapy Treatment Note PT-OP-A Visit Information Start: 08/10/24 16:17 Freq: Status: Active Protocol: Document 08/25/24 08:05 MB (Rec: 08/25/24 08:49 MB [id number]) Out-Patient Physical Therapy Visit Information Visit Information Visit Type Treatment Note Visit Note Medicare Progress note by 09/10/24 Visit Start Time 08:05 Visit Stop Time 08:45 Visit Number 4 Number of MEAT COUNTER WORKER Visits 0 Evaluation Information Evaluation Date 08/11/24 Precautions Precautions Many changes on left knee MRI, in prior tests and also in EMR PT-OP-B Current Condition Start: 08/10/24 16:17 Freq: Status: Active Protocol: Document 08/11/24 09:48 MB (Rec: 08/11/24 10:04 MB [id number]) Current Condition History of Current Condition Onset Date May 2024 Current Complaints Pain, PTSD and fear of hitting something uneven and falling History of Current Condition Pt states that in May or around then, she was walking in Saturday and a dog came for her dog and ran into her left knee from the lateral side. She heard a pop and she went down and experienced 10/ 10 pain and the ambulance took her to the hospital. Pt has a fear of leg giving way. Pt has that wraps around. Pt likes to snow ski and injured her right knee during COVID and did not have surgery she feels d/t COVID restrictions. She saw Dr. Almanza for left knee in June and MRI was done and surgery was not recommended. Neither was an injection. Pt is retired. She likes to ride her bike outside and she has a gutierrez retriever to walk . Dismounting off the bike is troublesome. Pt denies numbness and tingling in the leg. Prior Treatments and Tests Left knee MRI 07/13/24: IMPRESSION: 1. Complete midsubstance tearing of the anterior cruciate ligament. 2. Grade 1 sprain of the medial collateral ligament. 3. Nondisplaced fracture at the far posterior portion of the medial tibial plateau. Minimally depressed impaction fracture at the far posterior portion of the lateral tibial plateau. Mild adjacent osseous edema. Small osseous contusion is also seen at the anterior weight-bearing portion of the lateral femoral condyle consistent with a pivot-shift injury mechanism. 4. Complex tearing at the junction of the posterior horn and body of the medial meniscus with shallow radial and horizontal oblique components. Diminutive appearance of the posterior horn. 5. Small area of full- thickness cartilage loss in the patellofemoral compartment . Denies grade 3 chondromalacia in the weight-bearing portion of the medial femorotibial compartment. 6. Moderate joint effusion. Small medial popliteal cyst. Treatment Goals Patient/Caregiver Goals Left knee stability PT-OP-C Subjective Start: 08/10/24 16:17 Freq: Status: Active Protocol: Document 08/25/24 08:05 MB (Rec: 08/25/24 08:49 MB [id number]) OP-PT Subjective Patient Comments Patient Comments Pt's left arm is much better after getting topical antibiotic and it drained. [place] had pain in the inferoanterior pain. PT-OP-G Mobility & Gait Start: 08/10/24 16:17 Freq: Status: Active Protocol: Document 08/11/24 09:48 MB (Rec: 08/11/24 13:48 MB [id number]) OP Gait Assessment Comments Gait Comments Gait training reveals very faint whip-like movement of left distal LE with stepping, decreased muscle mass left plantar flexors, overpronation of left rearfoot and tibial torsion and increased Won angle LLE with gait that corrects with standing and pt states she notes she has changed her gait. PT-OP-J Posture/Palpation/Skin Start: 08/10/24 16:17 Freq: Status: Active Protocol: Document 08/11/24 09:48 MB (Rec: 08/11/24 13:48 MB [id number]) Posture Evaluation Comments Posture Comments Standing posture with shoes off: forwad head, Dowager's hump, decreased thoracic kyphosis with mild right convexity, right iliac crest higher than left about 1/4. PT-OP-K Range of Motion Start: 08/10/24 16:17 Freq: Status: Active Protocol: Document 08/11/24 09:48 MB (Rec: 08/11/24 13:48 MB [id number]) Knee Goniometric Range of Motion Knee Left Knee ROM WFL Yes Patient Position Supine Comments 5-120 deg in supine Right Knee ROM WFL Yes Patient Position Supine Comments 0-135 deg in supine Ankle and Foot Goniometric Range of Motion Ankle and Foot ROM Limitations Comments Right great toe changes and decreased great toe extension after surgery in the past PT-OP-M Strength Start: 08/10/24 16:17 Freq: Status: Active Protocol: Document 08/11/24 09:48 MB (Rec: 08/11/24 13:48 MB [id number]) Hip Strength Hip Manual Muscle Testing Bilateral Flexion (L2) 5 Normal Abduction 5 Normal Knee Strength Knee Manual Muscle Testing Left Flexion (S2) 4 Good Extension (L3) 4 Good Right Flexion (S2) 5 Normal Extension (L3) 5 Normal Ankle/Foot Strength Ankle and Foot Manual Muscle Testing Left Dorsiflexion (L4) 5 Normal Comments Pt performs 10 reps heel raises with balance support on wall and anterior knee appears unstable and she has pain Right Dorsiflexion (L4) 5 Normal Plantarflexion (S1) 5 Normal Toe Strength Toe Manual Muscle Testing Right Great Toe Extension 3+ Fair+ Left Great Toe Extension 3+ Fair+ PT-OP-Q Treatments Start: 08/10/24 16:17 Freq: Status: Active Protocol: Document 08/25/24 08:05 MB (Rec: 08/25/24 08:49 MB [id number]) Cardio Equipment Bicycle (Upright) Duration (Minutes) 10 Resistance 7 Seat Position 7 Manual Therapy Treatment Consent Patient gave verbal consent for manual Yes treatment Other Other Manual Treatments Pt supine with head and legs supported and STM and positional release left PFs, quads, TFL, hamstring, TrP treatment left rectus and vastus lateralis PT-OP-T Assessment and Plan Start: 08/10/24 16:17 Freq: Status: Active Protocol: Document 08/25/24 08:05 MB (Rec: 08/25/24 08:49 MB [id number]) Physical Therapy Assessment Rehab Potential Rehabilitation Potential Fair Evaluation Complexity Number of Personal Factors/Comorbidities 1-2 Number of Body Systems Impaired 1-2 Clinical Presentation at Evaluation Unstable Impairments Impairments Activity Tolerance,Balance, Coordination,Functional Activities,Functional Mobility ,Gait,Pain,Posture,ROM,Soft Tissue Mobility,Strength Goals 4 Impairment LLE weakness Referral Clerk Goal (LTG) Pt will present with 5/5 left knee extension and flexion and ankle PF strength to improve gait pattern and overall function. LTG Duration 8 weeks 3 Impairment Lack of HEP Skilled Nursing Goal (LTG) Pt will perform HEP with I including pelvic realignment, flexibility, strengthening, gait and balance activities to improve functional strength and balance. LTG Duration 8 weeks 2 Impairment Slow gait Referral Clerk Goal (LTG) Pt will gait train at least 1700 feet in 6 minutes to improve community ambulation and gait speed and to reflect norms for pt's age and gender. LTG Duration 8 weeks 1 Impairment LEF score reflects 27.5% impairment Skilled Nursing Goal (LTG) Pt will present with LEF score reflecting no more than 20% impairment to reflect improved function. LTG Duration 8 weeks Assessment Summary Assessment Pt con't to c/o pain anterior left knee near the tibial plateau area where some of the damage did show up on MRI including possible fracture. Recommend follow-up with orthopedist again given pt is active and feels fearful of injury, instability. Will con' t PT efforts to see if conservative management can assist pt, knowing that it cannot fix the meniscus, ACL, tibial plateau issue, etc. Increased myofascial tension greatest left TFL today and point tenderness posterior knee and PT does not feel what the underlying anatomical area is causing pain. Con't efforts. Physical Therapy Plan Frequency and Duration Frequency of Treatment 1-2x/wk Duration of treatment (weeks) 8 Plan of Care Start Date 08/11/24 Plan of Care End Date 10/12/24 Therapeutic Interventions Therapeutic Interventions Balance Training,Canalithic Repositioning,Coordination Training,Gait Training,Home Exercise Program,Joint Mobilizations,Manual Therapy, Neuromuscular Re-education, Patient/Caregiver Education, Self-Care/Home Management,Soft Tissue Mobilization,Taping, Therapeutic Activities, Therapeutic Exercises Modalities Cold Pack/Ice Massage,Electric Stimulation,Hot Packs, Ultrasound Next Visit Focus/Plan Next Note Type Treatment Note Next Visit Plan Ongoing manual work Advance to SLS and other gentle strengthening exercises for hips, ankle and knees
--- NOTE | 2024-08-28 09:00 | PT.OTN ---
Current Diagnoses Pain in left knee (08/28/24) Strain of other muscle(s) and tendon(s) at lower leg level, left leg, initial encounter (08/28/24) Physical Therapy Treatment Note PT-OP-A Visit Information Start: 08/10/24 16:17 Freq: Status: Active Protocol: Document 08/28/24 08:17 SP (Rec: 08/28/24 09:05 SP [id number]) Out-Patient Physical Therapy Visit Information Visit Information Visit Type Treatment Note Visit Note Medicare Progress note by 09/10/24 Visit Start Time 08:17 Visit Stop Time 09:00 Visit Number 5 Number of FOREST TECHNICIAN Visits 1 Evaluation Information Evaluation Date 08/11/24 Precautions Precautions Many changes on left knee MRI, in prior tests and also in EMR PT-OP-B Current Condition Start: 08/10/24 16:17 Freq: Status: Active Protocol: Document 08/11/24 09:48 MB (Rec: 08/11/24 10:04 MB [id number]) Current Condition History of Current Condition Onset Date May 2024 Current Complaints Pain, PTSD and fear of hitting something uneven and falling History of Current Condition Pt states that in May or around then, she was walking in Saturday and a dog came for her dog and ran into her left knee from the lateral side. She heard a pop and she went down and experienced 10/ 10 pain and the ambulance took her to the hospital. Pt has a fear of leg giving way. Pt has that wraps around. Pt likes to snow ski and injured her right knee during COVID and did not have surgery she feels d/t COVID restrictions. She saw Dr. Almanza for left knee in June and MRI was done and surgery was not recommended. Neither was an injection. Pt is retired. She likes to ride her bike outside and she has a gutierrez retriever to walk . Dismounting off the bike is troublesome. Pt denies numbness and tingling in the leg. Prior Treatments and Tests Left knee MRI 07/13/24: IMPRESSION: 1. Complete midsubstance tearing of the anterior cruciate ligament. 2. Grade 1 sprain of the medial collateral ligament. 3. Nondisplaced fracture at the far posterior portion of the medial tibial plateau. Minimally depressed impaction fracture at the far posterior portion of the lateral tibial plateau. Mild adjacent osseous edema. Small osseous contusion is also seen at the anterior weight-bearing portion of the lateral femoral condyle consistent with a pivot-shift injury mechanism. 4. Complex tearing at the junction of the posterior horn and body of the medial meniscus with shallow radial and horizontal oblique components. Diminutive appearance of the posterior horn. 5. Small area of full- thickness cartilage loss in the patellofemoral compartment . Denies grade 3 chondromalacia in the weight-bearing portion of the medial femorotibial compartment. 6. Moderate joint effusion. Small medial popliteal cyst. Treatment Goals Patient/Caregiver Goals Left knee stability PT-OP-C Subjective Start: 08/10/24 16:17 Freq: Status: Active Protocol: Document 08/28/24 08:17 SP (Rec: 08/28/24 09:05 SP [id number]) OP-PT Subjective Patient Comments Patient Comments Pt reports L knee sore after TrP treatment but was in same area alway sore. States rep 28-29 during SLR. PT-OP-G Mobility & Gait Start: 08/10/24 16:17 Freq: Status: Active Protocol: Document 08/11/24 09:48 MB (Rec: 08/11/24 13:48 MB [id number]) OP Gait Assessment Comments Gait Comments Gait training reveals very faint whip-like movement of left distal LE with stepping, decreased muscle mass left plantar flexors, overpronation of left rearfoot and tibial torsion and increased Won angle LLE with gait that corrects with standing and pt states she notes she has changed her gait. PT-OP-J Posture/Palpation/Skin Start: 08/10/24 16:17 Freq: Status: Active Protocol: Document 08/11/24 09:48 MB (Rec: 08/11/24 13:48 MB [id number]) Posture Evaluation Comments Posture Comments Standing posture with shoes off: forwad head, Dowager's hump, decreased thoracic kyphosis with mild right convexity, right iliac crest higher than left about 1/4. PT-OP-K Range of Motion Start: 08/10/24 16:17 Freq: Status: Active Protocol: Document 08/11/24 09:48 MB (Rec: 08/11/24 13:48 MB [id number]) Knee Goniometric Range of Motion Knee Left Knee ROM WFL Yes Patient Position Supine Comments 5-120 deg in supine Right Knee ROM WFL Yes Patient Position Supine Comments 0-135 deg in supine Ankle and Foot Goniometric Range of Motion Ankle and Foot ROM Limitations Comments Right great toe changes and decreased great toe extension after surgery in the past PT-OP-M Strength Start: 08/10/24 16:17 Freq: Status: Active Protocol: Document 08/11/24 09:48 MB (Rec: 08/11/24 13:48 MB [id number]) Hip Strength Hip Manual Muscle Testing Bilateral Flexion (L2) 5 Normal Abduction 5 Normal Knee Strength Knee Manual Muscle Testing Left Flexion (S2) 4 Good Extension (L3) 4 Good Right Flexion (S2) 5 Normal Extension (L3) 5 Normal Ankle/Foot Strength Ankle and Foot Manual Muscle Testing Left Dorsiflexion (L4) 5 Normal Comments Pt performs 10 reps heel raises with balance support on wall and anterior knee appears unstable and she has pain Right Dorsiflexion (L4) 5 Normal Plantarflexion (S1) 5 Normal Toe Strength Toe Manual Muscle Testing Right Great Toe Extension 3+ Fair+ Left Great Toe Extension 3+ Fair+ PT-OP-Q Treatments Start: 08/10/24 16:17 Freq: Status: Active Protocol: Document 08/28/24 08:17 SP (Rec: 08/28/24 09:05 SP [id number]) Cardio Equipment Bicycle (Upright) Duration (Minutes) 10 Resistance 7 Seat Position 7 Therapeutic Exercises Supine Exercises Hip rotator stretch Supine Exercise Name piriformis stretch Side bilateral Equipment Used /c strap Reps/Minutes 30 sec each leg Hamstring stretch with strap, adductor and TFL stretches Supine Exercise Name HS /c AP, Adductor, ITB stretch Side bilateral Equipment Used /c Gait belt Reps/Minutes APs (HS), holding 30 sec each Comments Hamstring, adductor and TFL stretches using belt SLR with opposite leg bent Side bilateral Reps/Minutes 5 reps, each leg Comments Counting on the way up and down Sidelying Exercises hip abduction Sidelying Exercise Name trialed and added to HEP Side bilateral Equipment Used pnfree, good form/ alignment- hip abd tiring Reps/Minutes x15 each Comments cued stacked on side, ankle neutral Sitting Exercises sit<> stands Sitting Exercise Name initiated and added to HEP Equipment Used mesh chair, arms acrossed chest Reps/Minutes x10 Comments good form/painfree Standing Exercises calf raises Standing Exercise Name trialed in and added to HEP Equipment Used near wall, contact if needed. Reps/Minutes x10 Comments good form, painfree Manual Therapy Treatment Other Other Manual Treatments Pt supine with head and legs supported and STM and positional release left quads & TFL. PT-OP-T Assessment and Plan Start: 08/10/24 16:17 Freq: Status: Active Protocol: Document 08/28/24 08:17 SP (Rec: 08/28/24 09:05 SP [id number]) Physical Therapy Assessment Goals 4 Impairment LLE weakness Retirement Goal (LTG) Pt will present with 5/5 left knee extension and flexion and ankle PF strength to improve gait pattern and overall function. LTG Duration 8 weeks 3 Impairment Lack of HEP Kitchen Help Handyman Goal (LTG) Pt will perform HEP with I including pelvic realignment, flexibility, strengthening, gait and balance activities to improve functional strength and balance. LTG Duration 8 weeks 2 Impairment Slow gait Retirement Goal (LTG) Pt will gait train at least 1700 feet in 6 minutes to improve community ambulation and gait speed and to reflect norms for pt's age and gender. LTG Duration 8 weeks 1 Impairment LEF score reflects 27.5% impairment Kitchen Help Handyman Goal (LTG) Pt will present with LEF score reflecting no more than 20% impairment to reflect improved function. LTG Duration 8 weeks Assessment Summary Assessment Cues for PPT for during adductor stretch and opp LE bent for spinal support. Pt good response to manual and stretching HEP reviewed. Initiated gentle LE strengthening ( hip abd, STS, calf raises) to support knee strength, balance and mechanics getting in/out chair with no reports of pain throughout tx. Provided HOs for carryover recall and performance home. Physical Therapy Plan Frequency and Duration Frequency of Treatment 1-2x/wk Duration of treatment (weeks) 8 Plan of Care Start Date 08/11/24 Plan of Care End Date 10/12/24 Therapeutic Interventions Therapeutic Interventions Balance Training,Canalithic Repositioning,Coordination Training,Gait Training,Home Exercise Program,Joint Mobilizations,Manual Therapy, Neuromuscular Re-education, Patient/Caregiver Education, Self-Care/Home Management,Soft Tissue Mobilization,Taping, Therapeutic Activities, Therapeutic Exercises Modalities Cold Pack/Ice Massage,Electric Stimulation,Hot Packs, Ultrasound Next Visit Focus/Plan Next Note Type Treatment Note Next Visit Plan Ongoing manual work Advance to SLS and other gentle strengthening exercises for hips, ankle and knees
--- NOTE | 2024-09-04 11:28 | PT.OTN ---
Current Diagnoses Pain in left knee (09/04/24) Strain of other muscle(s) and tendon(s) at lower leg level, left leg, initial encounter (09/04/24) Physical Therapy Treatment Note PT-OP-A Visit Information Start: 08/10/24 16:17 Freq: Status: Active Protocol: Document 09/04/24 10:48 SP (Rec: 09/04/24 11:36 SP [id number]) Out-Patient Physical Therapy Visit Information Visit Information Visit Type Treatment Note Visit Note Medicare Progress note by 09/10/24 Visit Start Time 10:48 Visit Stop Time 11:28 Visit Number 6 Number of SENIOR TELECOMMUNICATIONS ENGINEER Visits 2 Evaluation Information Evaluation Date 08/11/24 Precautions Precautions Many changes on left knee MRI, in prior tests and also in EMR PT-OP-B Current Condition Start: 08/10/24 16:17 Freq: Status: Active Protocol: Document 08/11/24 09:48 MB (Rec: 08/11/24 10:04 MB [id number]) Current Condition History of Current Condition Onset Date May 2024 Current Complaints Pain, PTSD and fear of hitting something uneven and falling History of Current Condition Pt states that in May or around then, she was walking in Saturday and a dog came for her dog and ran into her left knee from the lateral side. She heard a pop and she went down and experienced 10/ 10 pain and the ambulance took her to the hospital. Pt has a fear of leg giving way. Pt has that wraps around. Pt likes to snow ski and injured her right knee during COVID and did not have surgery she feels d/t COVID restrictions. She saw Dr. Almanza for left knee in June and MRI was done and surgery was not recommended. Neither was an injection. Pt is retired. She likes to ride her bike outside and she has a gutierrez retriever to walk . Dismounting off the bike is troublesome. Pt denies numbness and tingling in the leg. Prior Treatments and Tests Left knee MRI 07/13/24: IMPRESSION: 1. Complete midsubstance tearing of the anterior cruciate ligament. 2. Grade 1 sprain of the medial collateral ligament. 3. Nondisplaced fracture at the far posterior portion of the medial tibial plateau. Minimally depressed impaction fracture at the far posterior portion of the lateral tibial plateau. Mild adjacent osseous edema. Small osseous contusion is also seen at the anterior weight-bearing portion of the lateral femoral condyle consistent with a pivot-shift injury mechanism. 4. Complex tearing at the junction of the posterior horn and body of the medial meniscus with shallow radial and horizontal oblique components. Diminutive appearance of the posterior horn. 5. Small area of full- thickness cartilage loss in the patellofemoral compartment . Denies grade 3 chondromalacia in the weight-bearing portion of the medial femorotibial compartment. 6. Moderate joint effusion. Small medial popliteal cyst. Treatment Goals Patient/Caregiver Goals Left knee stability PT-OP-C Subjective Start: 08/10/24 16:17 Freq: Status: Active Protocol: Document 09/04/24 10:48 SP (Rec: 09/04/24 11:36 SP [id number]) OP-PT Subjective Patient Comments Patient Comments Pt reports felt good after last tx. She states was able to walk [employer] and found was on a trial that had to navigate over rocks and was able to do it without pain but a really good challenge and suprisingly no pain next day. Her pain is on/ off, today fine, yesterday pain over anteromedial L knee. She states PT-OP-G Mobility & Gait Start: 08/10/24 16:17 Freq: Status: Active Protocol: Document 08/11/24 09:48 MB (Rec: 08/11/24 13:48 MB [id number]) OP Gait Assessment Comments Gait Comments Gait training reveals very faint whip-like movement of left distal LE with stepping, decreased muscle mass left plantar flexors, overpronation of left rearfoot and tibial torsion and increased Won angle LLE with gait that corrects with standing and pt states she notes she has changed her gait. PT-OP-J Posture/Palpation/Skin Start: 08/10/24 16:17 Freq: Status: Active Protocol: Document 08/11/24 09:48 MB (Rec: 08/11/24 13:48 MB [id number]) Posture Evaluation Comments Posture Comments Standing posture with shoes off: forwad head, Dowager's hump, decreased thoracic kyphosis with mild right convexity, right iliac crest higher than left about 1/4. PT-OP-K Range of Motion Start: 08/10/24 16:17 Freq: Status: Active Protocol: Document 08/11/24 09:48 MB (Rec: 08/11/24 13:48 MB [id number]) Knee Goniometric Range of Motion Knee Left Knee ROM WFL Yes Patient Position Supine Comments 5-120 deg in supine Right Knee ROM WFL Yes Patient Position Supine Comments 0-135 deg in supine Ankle and Foot Goniometric Range of Motion Ankle and Foot ROM Limitations Comments Right great toe changes and decreased great toe extension after surgery in the past PT-OP-M Strength Start: 08/10/24 16:17 Freq: Status: Active Protocol: Document 08/11/24 09:48 MB (Rec: 08/11/24 13:48 MB [id number]) Hip Strength Hip Manual Muscle Testing Bilateral Flexion (L2) 5 Normal Abduction 5 Normal Knee Strength Knee Manual Muscle Testing Left Flexion (S2) 4 Good Extension (L3) 4 Good Right Flexion (S2) 5 Normal Extension (L3) 5 Normal Ankle/Foot Strength Ankle and Foot Manual Muscle Testing Left Dorsiflexion (L4) 5 Normal Comments Pt performs 10 reps heel raises with balance support on wall and anterior knee appears unstable and she has pain Right Dorsiflexion (L4) 5 Normal Plantarflexion (S1) 5 Normal Toe Strength Toe Manual Muscle Testing Right Great Toe Extension 3+ Fair+ Left Great Toe Extension 3+ Fair+ PT-OP-Q Treatments Start: 08/10/24 16:17 Freq: Status: Active Protocol: Document 09/04/24 10:48 SP (Rec: 09/04/24 11:36 SP [id number]) Cardio Equipment Bicycle (Upright) Duration (Minutes) 10 Resistance 7 Seat Position 7 Therapeutic Exercises Supine Exercises Hip rotator stretch Supine Exercise Name piriformis stretch Side bilateral Equipment Used /c stra p Reps/Minutes 30 sec each leg Comments after manual and hip abd Charly stretch Side bilateral Comments 30-45 sec with opposite leg to chest Sidelying Exercises hip abduction Sidelying Exercise Name HEP Side bilateral Equipment Used pnfree, good form/ alignment- hip abd tiring Reps/Minutes x15 each Comments post manual, improved form set up, cued slower pacing, lift not so high Sitting Exercises sit<> stands Sitting Exercise Name HEP Equipment Used mesh chair, arms acrossed chest Reps/Minutes x10 Comments good form hip hinge, little harder effort/tiring upper thighs last 2 reps Standing Exercises Hip Extension Standing Exercise Name initiated in PT, added to HEP /c HO Side bilateral Resistance TB #2 teal at thighs (no leg wts home) Equipment Used rail support Reps/Minutes x15 each LE Comments Cued TA, neutral pelvis, no LB arch, kick glut squeeze Hip abduction Standing Exercise Name initiated in PT, added to HEP /c HO Side bilateral Resistance TB #2 teal at thighs (no leg wts home) Equipment Used rail support Reps/Minutes x15 each LE Comments cues for set up and height kick form calf raises Standing Exercise Name HEP Side bilateral Equipment Used wall support Reps/Minutes x10 Comments good form, painfree Manual Therapy Treatment Consent Patient gave verbal consent for manual Yes treatment Soft Tissue Mobilization L knee Body Location patellar tendon Mobilization Type Myofascial Release Comments L knee flexion Joint Mobilizations L knee jt Joint tibfib proximal, tib femoral, Patellofemoral Direction PA<>AP, pat med/lat/inf/sup Grade II Body Position Hooklying Comments good mobility, patellofemoral sup/inf crepitus but pnfree Other Other Manual Treatments Supported L sidelying: STMs, R Glut Med, TFL. PT-OP-T Assessment and Plan Start: 08/10/24 16:17 Freq: Status: Active Protocol: Document 09/04/24 10:48 SP (Rec: 09/04/24 11:36 SP [id number]) Physical Therapy Assessment Goals 4 Impairment LLE weakness Bag Mender Goal (LTG) Pt will present with 5/5 left knee extension and flexion and ankle PF strength to improve gait pattern and overall function. LTG Duration 8 weeks 3 Impairment Lack of HEP Bag Mender Goal (LTG) Pt will perform HEP with I including pelvic realignment, flexibility, strengthening, gait and balance activities to improve functional strength and balance. LTG Duration 8 weeks 2 Impairment Slow gait [facility] Goal (LTG) Pt will gait train at least 1700 feet in 6 minutes to improve community ambulation and gait speed and to reflect norms for pt's age and gender. LTG Duration 8 weeks 1 Impairment LEF score reflects 27.5% impairment [facility] Goal (LTG) Pt will present with LEF score reflecting no more than 20% impairment to reflect improved function. LTG Duration 8 weeks Assessment Summary Assessment Decreased pain post manual. Reports tiring soreness during ther ex but not pain. CUes as needed for proper form. Initiated resisted hip strengthening with no adverse affects than hip muscle tiring and little discomfort L anteromedial knee during stance time R hip extension, 4 /10 feels good to do more activities so can continue to hike trails. Physical Therapy Plan Frequency and Duration Frequency of Treatment 1-2x/wk Duration of treatment (weeks) 8 Plan of Care Start Date 08/11/24 Plan of Care End Date 10/12/24 Therapeutic Interventions Therapeutic Interventions Balance Training,Canalithic Repositioning,Coordination Training,Gait Training,Home Exercise Program,Joint Mobilizations,Manual Therapy, Neuromuscular Re-education, Patient/Caregiver Education, Self-Care/Home Management,Soft Tissue Mobilization,Taping, Therapeutic Activities, Therapeutic Exercises Modalities Cold Pack/Ice Massage,Electric Stimulation,Hot Packs, Ultrasound Next Visit Focus/Plan Next Note Type Treatment Note Next Visit Plan Check HEP, condense if needed. Hip ext & ABD added last tx. POC: Ongoing manual work Advance to SLS and other gentle strengthening exercises for hips, ankle and knees
--- NOTE | 2024-09-15 10:30 | PT.OTN ---
Current Diagnoses Pain in left knee (09/15/24) Strain of other muscle(s) and tendon(s) at lower leg level, left leg, initial encounter (09/15/24) Physical Therapy Treatment Note PT-OP-A Visit Information Start: 08/10/24 16:17 Freq: Status: Active Protocol: Document 09/15/24 09:50 SP (Rec: 09/15/24 10:50 SP [id number]) Out-Patient Physical Therapy Visit Information Visit Information Visit Type Treatment Note Visit Note Medicare Progress note by 09/10/24 Visit Start Time 09:50 Visit Stop Time 10:30 Visit Number 7 Number of CATH LAB RADIOLOGICAL TECHNOLOGIST Visits 3 Evaluation Information Evaluation Date 08/11/24 Precautions Precautions Many changes on left knee MRI, in prior tests and also in EMR PT-OP-B Current Condition Start: 08/10/24 16:17 Freq: Status: Active Protocol: Document 08/11/24 09:48 MB (Rec: 08/11/24 10:04 MB [id number]) Current Condition History of Current Condition Onset Date May 2024 Current Complaints Pain, PTSD and fear of hitting something uneven and falling History of Current Condition Pt states that in May or around then, she was walking in Saturday and a dog came for her dog and ran into her left knee from the lateral side. She heard a pop and she went down and experienced 10/ 10 pain and the ambulance took her to the hospital. Pt has a fear of leg giving way. Pt has that wraps around. Pt likes to snow ski and injured her right knee during COVID and did not have surgery she feels d/t COVID restrictions. She saw Dr. Almanza for left knee in June and MRI was done and surgery was not recommended. Neither was an injection. Pt is retired. She likes to ride her bike outside and she has a gutierrez retriever to walk . Dismounting off the bike is troublesome. Pt denies numbness and tingling in the leg. Prior Treatments and Tests Left knee MRI 07/13/24: IMPRESSION: 1. Complete midsubstance tearing of the anterior cruciate ligament. 2. Grade 1 sprain of the medial collateral ligament. 3. Nondisplaced fracture at the far posterior portion of the medial tibial plateau. Minimally depressed impaction fracture at the far posterior portion of the lateral tibial plateau. Mild adjacent osseous edema. Small osseous contusion is also seen at the anterior weight-bearing portion of the lateral femoral condyle consistent with a pivot-shift injury mechanism. 4. Complex tearing at the junction of the posterior horn and body of the medial meniscus with shallow radial and horizontal oblique components. Diminutive appearance of the posterior horn. 5. Small area of full- thickness cartilage loss in the patellofemoral compartment . Denies grade 3 chondromalacia in the weight-bearing portion of the medial femorotibial compartment. 6. Moderate joint effusion. Small medial popliteal cyst. Treatment Goals Patient/Caregiver Goals Left knee stability PT-OP-C Subjective Start: 08/10/24 16:17 Freq: Status: Active Protocol: Document 09/15/24 09:50 SP (Rec: 09/15/24 10:50 SP [id number]) OP-PT Subjective Patient Comments Patient Comments Pt reports she went camping with her camper and did some riding her regular mountain bike mostly level terrain and had no pain mount and dismount . But when got home had some niggle of pain behind L knee . Mostly just feeling distal L adductor discomfort descend stepping, fine uneven ground trail murphy. PT-OP-G Mobility & Gait Start: 08/10/24 16:17 Freq: Status: Active Protocol: Document 08/11/24 09:48 MB (Rec: 08/11/24 13:48 MB [id number]) OP Gait Assessment Comments Gait Comments Gait training reveals very faint whip-like movement of left distal LE with stepping, decreased muscle mass left plantar flexors, overpronation of left rearfoot and tibial torsion and increased Won angle LLE with gait that corrects with standing and pt states she notes she has changed her gait. PT-OP-J Posture/Palpation/Skin Start: 08/10/24 16:17 Freq: Status: Active Protocol: Document 08/11/24 09:48 MB (Rec: 08/11/24 13:48 MB [id number]) Posture Evaluation Comments Posture Comments Standing posture with shoes off: forwad head, Dowager's hump, decreased thoracic kyphosis with mild right convexity, right iliac crest higher than left about 1/4. PT-OP-K Range of Motion Start: 08/10/24 16:17 Freq: Status: Active Protocol: Document 08/11/24 09:48 MB (Rec: 08/11/24 13:48 MB [id number]) Knee Goniometric Range of Motion Knee Left Knee ROM WFL Yes Patient Position Supine Comments 5-120 deg in supine Right Knee ROM WFL Yes Patient Position Supine Comments 0-135 deg in supine Ankle and Foot Goniometric Range of Motion Ankle and Foot ROM Limitations Comments Right great toe changes and decreased great toe extension after surgery in the past PT-OP-M Strength Start: 08/10/24 16:17 Freq: Status: Active Protocol: Document 08/11/24 09:48 MB (Rec: 08/11/24 13:48 MB [id number]) Hip Strength Hip Manual Muscle Testing Bilateral Flexion (L2) 5 Normal Abduction 5 Normal Knee Strength Knee Manual Muscle Testing Left Flexion (S2) 4 Good Extension (L3) 4 Good Right Flexion (S2) 5 Normal Extension (L3) 5 Normal Ankle/Foot Strength Ankle and Foot Manual Muscle Testing Left Dorsiflexion (L4) 5 Normal Comments Pt performs 10 reps heel raises with balance support on wall and anterior knee appears unstable and she has pain Right Dorsiflexion (L4) 5 Normal Plantarflexion (S1) 5 Normal Toe Strength Toe Manual Muscle Testing Right Great Toe Extension 3+ Fair+ Left Great Toe Extension 3+ Fair+ PT-OP-Q Treatments Start: 08/10/24 16:17 Freq: Status: Active Protocol: Document 09/15/24 09:50 SP (Rec: 09/15/24 10:50 SP [id number]) Cardio Equipment Bicycle (Upright) Duration (Minutes) 8 Resistance 7>8>9>10 Seat Position 7 Other 66-72 RPMs Therapeutic Exercises Sidelying Exercises hip adduction Sidelying Exercise Name trailed in PT- added to HEP Side bilateral Equipment Used opposite LE bent foot ontable Reps/Minutes x10 Comments cued TKE, neutral ankle, slow small lift/lower- pnfree hip abduction Sidelying Exercise Name HEP Side bilateral Equipment Used pnfree, good form/ alignment- hip abd tiring Reps/Minutes x15 each- tiring last rep Comments cued slower pacing, TA draw in , improved form Sitting Exercises sit<> stands Sitting Exercise Name HEP Equipment Used mesh chair, arms acrossed chest Reps/Minutes x10 Comments good form hip hinge, little patellar crackle Standing Exercises step up, downs Standing Exercise Name trialed in PT Side right Reps/Minutes 5 reps Comments fwd, lateral, fwd down- little irritation Hip Extension Standing Exercise Name HEP Side bilateral Resistance TB #2 teal at thighs>upper gordon Equipment Used rail support Reps/Minutes 2x15 each LE- slower pacing Comments cues for posture, kick andrea range glut fac, no LB arch Hip abduction Standing Exercise Name HEP Side bilateral Resistance TB #2 teal at thighs>upper gordon Equipment Used rail support Reps/Minutes 2x15 each LE- slower pacing Comments cues for posture, kick andrea range hip abd fac Manual Therapy Treatment Consent Patient gave verbal consent for manual Yes treatment Soft Tissue Mobilization L knee Body Location distal adductor at tib, patellar mobility Mobilization Type Myofascial Release,Rolling Body Position seated Comments gentle STMs and patellar mobility manual and ed self application Neuro Re-Education Treatment Balance Activities dynamic head turns Details fwd & backward: EO, EC- trialed in PT only Surface tile Equipment near wall Comments FWD: head turns, EC finger glide wall BWD: regular stepping, EC -cues for increase NAHID /c EC, viers to L trial no EC no finger on wall SLS Equipment near rail Comments LLE 40 sec before trunk over wt shift RLE 60 sec Pnfree PT-OP-T Assessment and Plan Start: 08/10/24 16:17 Freq: Status: Active Protocol: Document 09/15/24 09:50 SP (Rec: 09/15/24 10:50 SP [id number]) Physical Therapy Assessment Goals 4 Impairment LLE weakness Public Events Facilities Rental Manager Goal (LTG) Pt will present with 5/5 left knee extension and flexion and ankle PF strength to improve gait pattern and overall function. LTG Duration 8 weeks 3 Impairment Lack of HEP Usp Goal (LTG) Pt will perform HEP with I including pelvic realignment, flexibility, strengthening, gait and balance activities to improve functional strength and balance. LTG Duration 8 weeks 2 Impairment Slow gait Usp Goal (LTG) Pt will gait train at least 1700 feet in 6 minutes to improve community ambulation and gait speed and to reflect norms for pt's age and gender. LTG Duration 8 weeks 1 Impairment LEF score reflects 27.5% impairment Usp Goal (LTG) Pt will present with LEF score reflecting no more than 20% impairment to reflect improved function. LTG Duration 8 weeks Assessment Summary Assessment Pt tolerated tx well. Good tiring effort reported during ther ex. only reports of slight discomfort during back step down and lateral step down trial today. Added AROM adduction for gentle/light strengthening with no pain reported. Good stabiltiy during dynamic stepping but viers off to L during EC forward, improved wall contact , not added to HEP. Will assess if need continue next. Would be good to have orthopedic consult for awareness why distal adduct pain with some activities even though trail walking ascending and biking is going well. Physical Therapy Plan Frequency and Duration Frequency of Treatment 1-2x/wk Duration of treatment (weeks) 8 Plan of Care Start Date 08/11/24 Plan of Care End Date 10/12/24 Therapeutic Interventions Therapeutic Interventions Balance Training,Canalithic Repositioning,Coordination Training,Gait Training,Home Exercise Program,Joint Mobilizations,Manual Therapy, Neuromuscular Re-education, Patient/Caregiver Education, Self-Care/Home Management,Soft Tissue Mobilization,Taping, Therapeutic Activities, Therapeutic Exercises Modalities Cold Pack/Ice Massage,Electric Stimulation,Hot Packs, Ultrasound Next Visit Focus/Plan Next Note Type Treatment Note Next Visit Plan Check HEP, condense if needed. Newly added hip adduction. Check if step ups ok, down low height. balance activities. POC: Ongoing manual work Advance to SLS and other gentle strengthening exercises for hips, ankle and knees
--- NOTE | 2024-09-21 08:57 | PT.OTN ---
Current Diagnoses Pain in left knee (09/21/24) Strain of other muscle(s) and tendon(s) at lower leg level, left leg, initial encounter (09/21/24) Physical Therapy Treatment Note PT-OP-A Visit Information Start: 08/10/24 16:17 Freq: Status: Active Protocol: Document 09/21/24 08:16 MB (Rec: 09/21/24 08:56 MB [id number]) Out-Patient Physical Therapy Visit Information Visit Information Visit Type Progress Note Visit Start Time 08:16 Visit Stop Time 08:56 Visit Number 8 Number of PLAYGROUND SUPERVISOR Visits 0 Evaluation Information Evaluation Date 08/11/24 Precautions Precautions Many changes on left knee MRI, in prior tests and also in EMR PT-OP-B Current Condition Start: 08/10/24 16:17 Freq: Status: Active Protocol: Document 08/11/24 09:48 MB (Rec: 08/11/24 10:04 MB [id number]) Current Condition History of Current Condition Onset Date May 2024 Current Complaints Pain, PTSD and fear of hitting something uneven and falling History of Current Condition Pt states that in May or around then, she was walking in Saturday and a dog came for her dog and ran into her left knee from the lateral side. She heard a pop and she went down and experienced 10/ 10 pain and the ambulance took her to the hospital. Pt has a fear of leg giving way. Pt has that wraps around. Pt likes to snow ski and injured her right knee during COVID and did not have surgery she feels d/t COVID restrictions. She saw Dr. Almanza for left knee in June and MRI was done and surgery was not recommended. Neither was an injection. Pt is retired. She likes to ride her bike outside and she has a gutierrez retriever to walk . Dismounting off the bike is troublesome. Pt denies numbness and tingling in the leg. Prior Treatments and Tests Left knee MRI 07/13/24: IMPRESSION: 1. Complete midsubstance tearing of the anterior cruciate ligament. 2. Grade 1 sprain of the medial collateral ligament. 3. Nondisplaced fracture at the far posterior portion of the medial tibial plateau. Minimally depressed impaction fracture at the far posterior portion of the lateral tibial plateau. Mild adjacent osseous edema. Small osseous contusion is also seen at the anterior weight-bearing portion of the lateral femoral condyle consistent with a pivot-shift injury mechanism. 4. Complex tearing at the junction of the posterior horn and body of the medial meniscus with shallow radial and horizontal oblique components. Diminutive appearance of the posterior horn. 5. Small area of full- thickness cartilage loss in the patellofemoral compartment . Denies grade 3 chondromalacia in the weight-bearing portion of the medial femorotibial compartment. 6. Moderate joint effusion. Small medial popliteal cyst. Treatment Goals Patient/Caregiver Goals Left knee stability PT-OP-C Subjective Start: 08/10/24 16:17 Freq: Status: Active Protocol: Document 09/21/24 08:16 MB (Rec: 09/21/24 08:56 MB [id number]) OP-PT Subjective Patient Comments Patient Comments Pt reports that overall, she is doing beter and has less fear of the left knee giving way. She is doing all her exercises and would like to con't with this. Plan will be to d/c PT today. PT-OP-G Mobility & Gait Start: 08/10/24 16:17 Freq: Status: Active Protocol: Document 08/11/24 09:48 MB (Rec: 08/11/24 13:48 MB [id number]) OP Gait Assessment Comments Gait Comments Gait training reveals very faint whip-like movement of left distal LE with stepping, decreased muscle mass left plantar flexors, overpronation of left rearfoot and tibial torsion and increased Won angle LLE with gait that corrects with standing and pt states she notes she has changed her gait. PT-OP-J Posture/Palpation/Skin Start: 08/10/24 16:17 Freq: Status: Active Protocol: Document 08/11/24 09:48 MB (Rec: 08/11/24 13:48 MB [id number]) Posture Evaluation Comments Posture Comments Standing posture with shoes off: forwad head, Dowager's hump, decreased thoracic kyphosis with mild right convexity, right iliac crest higher than left about 1/4. PT-OP-K Range of Motion Start: 08/10/24 16:17 Freq: Status: Active Protocol: Document 08/11/24 09:48 MB (Rec: 08/11/24 13:48 MB [id number]) Knee Goniometric Range of Motion Knee Left Knee ROM WFL Yes Patient Position Supine Comments 5-120 deg in supine Right Knee ROM WFL Yes Patient Position Supine Comments 0-135 deg in supine Ankle and Foot Goniometric Range of Motion Ankle and Foot ROM Limitations Comments Right great toe changes and decreased great toe extension after surgery in the past PT-OP-M Strength Start: 08/10/24 16:17 Freq: Status: Active Protocol: Document 08/11/24 09:48 MB (Rec: 08/11/24 13:48 MB [id number]) Hip Strength Hip Manual Muscle Testing Bilateral Flexion (L2) 5 Normal Abduction 5 Normal Knee Strength Knee Manual Muscle Testing Left Flexion (S2) 4 Good Extension (L3) 4 Good Right Flexion (S2) 5 Normal Extension (L3) 5 Normal Ankle/Foot Strength Ankle and Foot Manual Muscle Testing Left Dorsiflexion (L4) 5 Normal Comments Pt performs 10 reps heel raises with balance support on wall and anterior knee appears unstable and she has pain Right Dorsiflexion (L4) 5 Normal Plantarflexion (S1) 5 Normal Toe Strength Toe Manual Muscle Testing Right Great Toe Extension 3+ Fair+ Left Great Toe Extension 3+ Fair+ PT-OP-Q Treatments Start: 08/10/24 16:17 Freq: Status: Active Protocol: Document 09/21/24 08:16 MB (Rec: 09/21/24 08:56 MB [id number]) Cardio Equipment Bicycle (Upright) Duration (Minutes) 10 Resistance 8 Seat Position 7 Gait Training Gait Activity Gait throughout treatment Comments Similar pattern to 6MWT 6MWT Comments Pt gait trains 1586 feet in 6 minutes and she has decreased right arm swing, no pain in left knee and good aguila Manual Therapy Treatment Consent Patient gave verbal consent for manual Yes treatment Other Other Manual Treatments Pt supine with head and legs supported: medial left hamstring and adductor STM and grade II left patellar mobs PT-OP-T Assessment and Plan Start: 08/10/24 16:17 Freq: Status: Active Protocol: Document 09/21/24 08:16 MB (Rec: 09/21/24 08:56 MB [id number]) Physical Therapy Assessment Goals 4 Impairment LLE weakness Long-Term Goal (LTG) Pt will present with 5/5 left knee extension and flexion and ankle PF strength to improve gait pattern and overall function. 09/21/24: For PF test in standing, pt shifts weight forward and knee appears unstable and with knee flexion ; left knee flexion and extension 5/5 LTG Duration Partially met 3 Impairment Lack of HEP Long-Term Goal (LTG) Pt will perform HEP with I including pelvic realignment, flexibility, strengthening, gait and balance activities to improve functional strength and balance. 09/21/24: Pt is performing progressive HEP LTG Duration Met 2 Impairment Slow gait Long-Term Goal (LTG) Pt will gait train at least 1700 feet in 6 minutes to improve community ambulation and gait speed and to reflect norms for pt's age and gender. 09/21/24: Pt gait trains 1586 feet in 6 minutes with good aguila, decreased right arm swing and no pain in left knee with gait LTG Duration 8 weeks 1 Impairment LEF score reflects 27.5% impairment Burner Hand Goal (LTG) Pt will present with LEF score reflecting no more than 20% impairment to reflect improved function. 09/21/24: LEF score reflects 22.5% impairment LTG Duration Improvement Assessment Summary Assessment Pt has progressed towards all PT goals. She is ready for d/c and will con't with HEP at home. Recommend follow-up with orthopedist.
== END 2024-09-23 14:31 | disposition home or self-care (01) ==
LOC: PHYS 08:15
PROVIDERS: Family Provider Family Medicine; PCP Family Medicine; Referring Provider Orthopaedic Surgery; Visit Provider Orthopaedic Surgery
DX: M25.562 Pain in left knee (principal); S86.812A Strain of other muscle(s) and tendon(s) at lower leg level, left leg, initial encounter
CPT/HCPCS: 97110; 97116; 97140; 97161; 97535

== ENCOUNTER → 2024-10-17 14:22 | Outpatient (CLI) | payer MEDICARE, OTHER, SELFPAY ==
[2024-10-17 15:19] LABS: Adenovirus Not Detected (Not Detect); B. parapertussis Not Detected (Not Detecte); Bordetella pertussis Not Detected (Not Detect); Chlamydophila pneumoniae Not Detected (Not Detect); Coronavirus 229E Not Detected (Not Detect); Coronavirus HKU1 Not Detected (Not Detect); Coronavirus NL 63 Not Detected (Not Detect); Coronavirus OC43 Not Detected (Not Detect); Human Metapneumovirus Not Detected (Not Detect); Human Rhinovirus/Enterovirus Not Detected (Not Detect); Influenza A Not Detected (Not Detect); Influenza B Not Detected (Not Detect); Mycoplasma pneumoniae Not Detected (Not Detect); Parainfluenza Virus 1 Not Detected (Not Detect); Parainfluenza Virus 2 Not Detected (Not Detect); Parainfluenza Virus 3 Not Detected (Not Detect); Parainfluenza Virus 4 Detected (Not Detect); Respiratory Syncytial Virus Not Detected (Not Detect); SARS- CoV-2 Not Detected (Not Detecte)
== END ==
PROVIDERS: Family Provider Family Medicine; PCP Family Medicine; Visit Provider Nurse Practitioner Family
DX: R05.1 Acute cough (principal)
CPT/HCPCS: 87633

== ENCOUNTER → 2024-10-17 14:36 | Outpatient (CLI) | payer MEDICARE, OTHER, SELFPAY ==
--- NOTE | 2024-10-17 14:41 | DI.RAD.S_ITS ---
PROCEDURE: XR CHEST 2V INDICATIONS: Cough TECHNIQUE: 2 views of the chest were acquired. COMPARISON: [facility], , CHEST 1 VIEW, 06/09/2015, 3:24. [facility], , XR CHEST 2V, 12/02/2021, 15:10. FINDINGS: Surgical changes and devices: None. Lungs and pleura: Lungs are clear. No pleural effusions or pneumothorax. Mediastinum: The cardiac contours are within normal limits. The aorta demonstrates calcification and tortuosity. Bones and chest wall: No suspicious bony abnormalities. Age-appropriate bony degenerative changes are seen. S-shaped scoliotic curvature is seen. Soft tissues appear unremarkable. IMPRESSION: No focal infiltrates are seen. No acute cardiopulmonary abnormality is seen. Dictated by: Ata Pinto M.D. on 10/17/2024 at 14:10 Approved by: Ata Pinto M.D. on 10/17/2024 at 14:11
== END ==
LOC: RAD 14:41
PROVIDERS: Family Provider Family Medicine; PCP Family Medicine; Referring Provider Nurse Practitioner Family; Visit Provider Nurse Practitioner Family
DX: R05.1 Acute cough (principal)
CPT/HCPCS: 71046; 87633

== ENCOUNTER → 2025-01-12 13:57 | Outpatient (CLI) | payer MEDICARE, OTHER, SELFPAY ==
[2025-01-12 14:51] LABS: Estimated Glomerular Filt Rate > 60 mL/min (>60)
--- NOTE | 2025-01-12 15:09 | DI.CT.S_ITS ---
PROCEDURE: CT SOFT TISSUE NECK W CON INDICATIONS: neck pain on left side TECHNIQUE: After the administration of intravenous contrast, 3.0 mm axial sections acquired from the sella to the aortic arch. Additional oblique axial 3.0 mm sections acquired through the pharynx. 3 mm thick coronal and sagittal reformats were generated. For radiation dose reduction, the following was used: automated exposure control. COMPARISON: None. FINDINGS: Image quality: Excellent. Lymph nodes: No enlarged lymph nodes seen throughout the neck. Vessels: Visualized vasculature appears patent. Neck spaces: The oropharynx, nasopharynx, and pharynx demonstrate no mucosal lesions. The vocal cords, false vocal cords, pyriform sinuses, epiglottis, vallecula, and tongue base all appear normal. Extramucosal spaces appear unremarkable. Glands: The parotid and submandibular glands appear normal. Thyroid gland unremarkable. Miscellaneous: Visualized brain and orbits appear normal. Lung apices appear clear. Superficial soft tissues appear normal. Bones: Degenerative disc disease and arthropathy in the cervical spine IMPRESSION: No acute findings. Degenerative cervical spine Approved by: Hardy Lemons M.D. on 01/13/2025 at 17:32
== END ==
PROVIDERS: Radiology Diagnostic Radiology; Family Provider Family Medicine; PCP Family Medicine; Referring Provider Student in an Organized Health Care Education/Training Program; Visit Provider Student in an Organized Health Care Education/Training Program
DX: M47.812 Spondylosis without myelopathy or radiculopathy, cervical region (principal); M50.30 Other cervical disc degeneration, unspecified cervical region; M54.2 Cervicalgia; R53.83 Other fatigue
CPT/HCPCS: 36415; 70491; 82565; Q9967

== ENCOUNTER → 2025-03-03 11:35 | Outpatient (CLI) | payer MEDICARE, OTHER, SELFPAY ==
--- NOTE | 2025-03-03 11:38 | DI.RAD.S_ITS ---
PROCEDURE: XR FOOT LT MIN 3V INDICATIONS: Left foot pain TECHNIQUE: 3 views of the foot were acquired. COMPARISON: [facility] [place], CR, XR FOOT 3 VIEWS WEIGHT BEARING RIGHT, 12/10/2023, 9:02. [facility], CR, FOOT 3V RIGHT, 12/03/2016, 14:47. [facility], CR, FOOT 3V LEFT, 10/27/2015, 10:56. FINDINGS: Diffuse osseous demineralization. No acute fracture or dislocation. Mild hallux valgus without significant lateralization of the hallux sesamoids. 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 Os peroneum. The Lisfranc interval is preserved on the nonweightbearing view. Achilles calcaneal enthesopathy. IMPRESSION: Mild-moderate 1st MTP osteoarthritis with mild hallux valgus. Dictated by: Fer Dunn M.D. on 03/03/2025 at 12:33 Approved by: Fer Dunn M.D. on 03/03/2025 at 12:36
== END ==
PROVIDERS: Family Provider Family Medicine; PCP Family Medicine; Referring Provider Registered Nurse; Visit Provider Registered Nurse
DX: M19.072 Primary osteoarthritis, left ankle and foot (principal); M20.12 Hallux valgus (acquired), left foot
CPT/HCPCS: 73630

== ENCOUNTER → 2025-06-05 09:48 | Outpatient (CLI) | payer MEDICARE, OTHER, SELFPAY ==
--- NOTE | 2025-06-05 09:50 | DI.MG.S_ITS ---
MM screening mammo BI: 06/05/2025. BI-RADS: 1 CLINICAL: 69-year old female for bilateral screening mammogram. Tyrer-Cuzick lifetime risk of 7.7%. No personal or first-degree family history of breast cancer. PRIOR EXAMS 05/22/2024, 02/25/2023, 02/22/2022, 08/03/2020. MAMMOGRAPHY TECHNIQUE: 2D and 3D (tomosynthesis) digital mammographic views obtained, with additional images as needed for full coverage. Current study was also evaluated with a Computer Aided Detection (CAD) system. DENSITY C. The breasts are heterogeneously dense, which may obscure small masses. MAMMOGRAPHY FINDINGS Bilateral: No suspicious mass, asymmetry, microcalcification, or other abnormality seen. IMPRESSION: * No evidence of malignancy. RECOMMENDATIONS Bilateral * Annual screening mammography. OVERALL ASSESSMENT CATEGORY BI-RADS-1: Negative. The [employer] recommends annual screening mammography beginning at age 40 for women with average risk of breast cancer. ELECTRONICALLY SIGNED: Bill Youngblood M.D. on 06/07/2025 at 07:33:25 AM PT Interpreting Station ID: [id number]
== END ==
PROVIDERS: Family Provider Family Medicine; PCP Family Medicine; Referring Provider Family Medicine; Visit Provider Family Medicine
DX: Z12.31 Encounter for screening mammogram for malignant neoplasm of breast (principal); R92.333 Mammographic heterogeneous density, bilateral breasts
CPT/HCPCS: 77063; 77067

== ENCOUNTER → 2025-07-06 11:28 | Outpatient (CLI) | payer MEDICARE, OTHER, SELFPAY ==
[2025-07-06 15:24] LABS: Culture Indicated Urine Cult Not Indicated
[2025-07-07 13:36] LABS: Trichomoas vaginalis Negative (Negative)
== END ==
PROVIDERS: Student in an Organized Health Care Education/Training Program; Family Provider Family Medicine; PCP Family Medicine; Visit Provider Obstetrics & Gynecology
DX: N89.8 Other specified noninflammatory disorders of vagina (principal); R10.13 Epigastric pain; N81.9 Female genital prolapse, unspecified
CPT/HCPCS: 81015; 87480; 87510; 87660

== ENCOUNTER 2025-09-09 06:39 | Day surgery (SDC) | payer MEDICARE, OTHER, SELFPAY ==
[2025-07-11 15:12] VITALS: BMI 28.8
--- NOTE | 2025-09-09 | PATH_ITS ---
[facility] Accession Number: [id number] No. of containers..01 Tissue . 01 Material submitted: . gastrointestinal site - STOMACH, ANTRAL BIOPSY . 01 Diagnosis: STOMACH, ANTRAL BIOPSY: Gastric mucosa with minimal chronic inflammation. No Helicobacter organisms identified. No intestinal metaplasia, dysplasia, or malignancy identified. [facility] 09/22/20251699 Local . 01 Electronically signed: . Felix Burns MD, Pathologist NPI- [id number] . 01 Gross description: . Received in formalin with two identifiers and antral biopsy, are two ngo soft tissue fragments 0.3 cm each in greatest dimension. Submitted entirely in cassette A1. ([id number]) /[facility] 09/22/20251699 Local . 01 Microscopic: . ANTRAL BIOPSY: An immunohistochemical stain was performed to evaluate for Helicobacter organisms and is negative. The control stains appropriately. * This test was developed and the performance characteristics were validated by [facility]. It has not been cleared or approved by the Food and Drug Administration. . 01 Pathologist provided ICD-10: K29.30 . 01 CPT . 202416, K99260 Specimen Comment: A courtesy copy of this report has been sent to [facility] Pathology Performed at: [address], [place], [place] [id number] MD Felix Burns MD Phone: [phone]
--- NOTE | 2025-09-09 07:05 | PM.HP.IH.1 ---
History of Present Illness History of Present Illness Date Patient Seen: 09/09/25 Time Patient Seen: 07:05 Chief complaint: [facility] [place] Narrative: 70yo F presents for f/u EGD today. H/O severe H pylori gastritis [facility] Medical History (Updated 09/09/25 @ 07:06 by Luciano Monroe MD) Rheumatic fever Trigger middle finger of right hand (10/05/15) Levoscoliosis (12/02/13) Aortic calcification Sigmoid diverticulosis Jaw pain, non-TMJ Prolapse of female pelvic organs Pneumonia Scarlet fever Mumps History of [place] measles Chicken pox Left inguinal hernia (1988) Vasovagal syncope Surgical History Status post colonoscopy (2013) Status post colonoscopy (2004) Status post dilation and curettage (1987) Status post hernia repair (1988) Status post tonsillectomy and adenoidectomy (~1959) Family History Daughter No problems noted. Mother Hyperlipidemia Diabetes mellitus Stroke Hypertension Arthritis Blood clotting disorder Father Cancer Sister No problems noted. Son No problems noted. Social History marital status: household members: spouse lives independently: Yes pets and animals: Yes occupational status: unemployed alcohol intake: current substance use type: does not use Meds Home Medications and Allergies Home Medications ?Medication ?Instructions ?Recorded ?Confirmed ?Type estradiol 0.01% (0.1 mg/gram) 1 appful vaginal DAILY #42.5 grams 11/06/24 09/08/25 Rx vaginal cream (Estrace) amoxicillin 250 mg capsule 1,000 mg (4 x 250 mg) PO BID #28 07/12/25 09/08/25 Rx caps clarithromycin 500 mg tablet 500 mg PO BID #28 tabs 07/12/25 09/08/25 Rx nystatin 100,000 unit/mL oral 5 ml PO QID #60 mL 07/12/25 09/08/25 Rx suspension pantoprazole 40 mg tablet,delayed 40 mg PO BID #60 tabs 07/12/25 09/08/25 Rx release ondansetron 4 mg disintegrating 4 mg PO Q6-8H PRN nausea and 07/15/25 09/08/25 Rx tablet vomiting #20 tabs Allergies Allergy/AdvReac Type Severity Reaction Status Date / Time Sulfa (Sulfonamide Allergy Mild BURNING Verified 09/08/25 11:01 Antibiotics) (SULFA (SULFONAMIDE ANTIBIOTICS)) meloxicam (MELOXICAM) Allergy Unknown Verified 09/08/25 11:01 Exam Narrative Exam Narrative: Const General: healthy appearing, comfortable and no acute distress Orientation: alert and oriented x3 HENMT Ears: hearing grossly normal bilaterally Eyes Visual Levi: normal visual levi by confrontation Conjunctivae: conjunctivae normal Sclera: sclerae normal EOM: EOM intact bilaterally Resp Effort & Inspection: normal respiratory effort and able to speak in complete sentences Cardio Rate: regular rate GI Palpation: soft (NT) Extrem General: no pedal edema and no calf tenderness Assessment & Plan Assessment and plan (1) Helicobacter positive gastritis: Status: Acute Plan EGD with biopsy today. The risks, benefits and options regarding the procedure were explained to the patient in detail. Risk discussion included but not limited to: bleeding, perforation, missed lesion. The patient was encouraged to ask questions and they were answered to their satisfaction. The patient understands and is agreeable to proceed. Time-Based Coding :: [TOTAL MINUTES] spent with patient and on the chart (including review of chart, obtaining history, exam, reviewing outside data, placing orders, documenting exam and treatment plan, and counseling patient) on [DATE]. [employer] Training Representative Document charge(s): Yes Charge Codes Inpatient/observation care including admit and discharge same day: [id number]
[2025-09-09 07:15] VITALS: BP 147/90; PULSE 74; RESP 14; TEMP 36.7; O2SAT 97
[2025-09-09] MEDS: LACTATED RINGERS 1,000 ML 42 ML IV (07:27)
--- NOTE | 2025-09-09 07:44 | PM.OP.EGD ---
Operative Date/Time/Diagnoses Date of procedure: 09/09/25 Time of procedure: 07:57 Pre-op diagnosis: H/O H pylori gastritis Post-op diagnosis: same Procedure & Clinicians Study performed: EGD, biopsy Same procedure(s) as scheduled: Yes Indications: 70yo F, h/o severe H pylori Surgeon: Luciano Monroe Anesthesia Type: MAC +/- Procedure Notes SCOAP/Timeout: Performed Procedure in detail: EGD Informed consent was obtained. The procedure, its risks, benefits, and alternatives were discussed. Patient understood and agreed to proceed. The patient was placed in the left lateral decubitus position with head elevated. Sedation given per anesthesia. The video endoscope was inserted into the oropharynx and guided under direct vision into the esophagus, stomach, and duodenum which were carefully examined. The scope was retroflexed to examine the hiatus and gastroesophageal junction. Antral biopsies were obtained for Helicobacter pylori. The patient tolerated the procedure very well. There were no apparent complications. Significant EGD findings: Z-line noted at: 36cm Marked improvement in gastritis after H pylori treatment No duodenitis Minimal antral gastritis, biopsies taken for H pylori Antral diverticulum, biopsies taken at rim No ulcerations in gastric body or duodenum No hiatal hernia or esophagitis Specimen(s): other (antral biopsies) Complications: none Impression: Marked improvement Post-procedure Recommendations: Will call with biopsy results Plan for aftercare: PACU then home Follow up: as needed Disposition: PACU
[2025-09-09 07:53] VITALS: BP 113/65; PULSE 63; RESP 14; TEMP 36.1; O2SAT 94
[2025-09-09 07:58] VITALS: BP 112/67; PULSE 63; RESP 14; O2SAT 94
[2025-09-09 08:03] VITALS: BP 117/91; PULSE 60; RESP 14; O2SAT 93
[2025-09-09 08:08] VITALS: BP 117/71; PULSE 60; RESP 14; O2SAT 97
[2025-09-09 08:09] VITALS: BP 113/71; PULSE 60; RESP 14; O2SAT 97
== END 2025-09-09 08:30 | disposition home or self-care (01) ==
PROVIDERS: PCP Family Medicine; Referring Provider Surgery; Visit Provider Surgery
PROC: 0DJ08ZZ Inspection of Upper Intestinal Tract, Via Natural or Artificial Opening Endoscopic (ICD-10-PCS; CPT 43239; principal; 2025-09-09 07:45)
DX: K29.50 Unspecified chronic gastritis without bleeding (principal); K31.4 Gastric diverticulum
CPT/HCPCS: 43239; J2704; J7120

== ENCOUNTER → 2025-11-16 16:04 | Outpatient (CLI) | payer MEDICARE, OTHER, SELFPAY ==
[2025-07-11 15:12] VITALS: BMI 28.8
[2025-11-17 12:36] LABS: Trichomoas vaginalis Negative (Negative)
== END ==
PROVIDERS: PCP Family Medicine; Visit Provider Obstetrics & Gynecology
DX: Z11.3 Encounter for screening for infections with a predominantly sexual mode of transmission (principal); R30.0 Dysuria; N89.8 Other specified noninflammatory disorders of vagina
CPT/HCPCS: 81514; 87086; 87529